=== PATIENT | female | born 1965 | race Caucasian/White ===

== ENCOUNTER → 2017-02-20 | Outpatient (CLI) | payer BC ==
--- NOTE | 2017-02-22 10:45 | MM ---
Reason for exam: screening (asymptomatic). Last mammogram was performed 1 year and 2 months ago. History: Patient is postmenopausal. Benign cyst aspiration of the right breast, 1984. Physical Findings: A clinical breast exam by your physician is recommended on an annual basis and results should be correlated with mammographic findings. MG Screening Mammo w CAD Bilateral CC and MLO view(s) were taken. Prior study comparison: December 16, 2015, bilateral MG screening mammo w CAD. October 06, 2014, bilateral MG screening mammo w CAD. The breast tissue is heterogeneously dense. This may lower the sensitivity of mammography. There is chronic nodularity in the left breast laterally. No significant changes when compared with prior studies. ASSESSMENT: Negative, BI-RAD 1 RECOMMENDATION: Routine screening mammogram of both breasts in 1 year.
== END | disposition home or self-care (01) ==
LOC: RADMAMWWP 08:53
PROVIDERS: ATTEND Family Medicine
DX: Z12.31 Encounter for screening mammogram for malignant neoplasm of breast (principal)

== ENCOUNTER 2018-04-23 13:28 | Inpatient (IN) | payer OTHER ==
[2018-04-23] MEDS ORDERED: ONDANSETRON 4 MG/2 ML VIAL IVP STA (15:17)
--- NOTE | 2018-04-23 15:22 | ED ---
General Adult HPI - General Chief complaint: Abdominal Pain Stated complaint: abd pain Source: patient Mode of arrival: ambulatory Limitations: no limitations - Related Data Home Medications Medication Instructions Recorded Confirmed Levothyroxine Sodium [Synthroid] 50 mcg PO DAILY 04/23/18 04/23/18 Allergies Allergy/AdvReac Type Severity Reaction Status Date / Time No Known Allergies Allergy Verified 04/23/18 15:53 Review of Systems ROS Statement: Those systems with pertinent positive or pertinent negative responses have been documented in the HPI. ROS Other: All systems not noted in ROS Statement are negative. Past Medical History Past Medical History: Thyroid Disorder History of Any Multi-Drug Resistant Organisms: None Reported Past Surgical History: Cholecystectomy, Tonsillectomy Additional Past Surgical History / Comment(s): tummy Past Psychological History: No Psychological Hx Reported Smoking Status: Current every day smoker Past Alcohol Use History: None Reported Past Drug Use History: None Reported General Exam Limitations: no limitations Course Vital Signs 04/23/18 04/23/18 04/23/18 13:50 16:18 17:46 Temperature 99.4 F 101.5 F H 100.8 F H Pulse Rate 109 H 93 Respiratory 18 18 Rate Blood Pressure 151/84 117/62 O2 Sat by Pulse 96 98 Oximetry Medical Decision Making - Medical Decision Making Dictation was produced using [employer] dictation software. please excuse any grammatical, word or spelling errors. Chief Complaint: 52-year-old female past medical history of thyroid disease presents with right lower quadrant abdominal pain 1 day. History of Present Illness: Patient states that her symptoms began last night. Her chief complaint is right lower quadrant abdominal pain. Patient states her symptoms began as diffuse abdominal cramping which has now referred to the right lower quadrant. Patient has history of cholecystectomy. Patient has nausea however has not vomited. Patient's stooling pattern has been at baseline. Patient denies any fever or constitutional symptoms. She denies any history of appendicitis. The ROS documented in this emergency department record has been reviewed and confirmed by me. Those systems with pertinent positive or negative responses have been documented in the HPI. All other systems are other negative and/or noncontributory. PHYSICAL EXAM: General Impression: Alert and oriented x3, not in acute distress HEENT: Normocephalic atraumatic, extra-ocular movements intact, pupils equal and reactive to light bilaterally, mucous membranes moist. Cardiovascular: Heart regular rate and rhythm, S1&S2 audible, no murmurs, rubs or gallops Chest: Lungs clear to auscultation bilaterally, no rhonchi, no wheeze, no rales Abdomen: Tenderness to palpation in the right lower quadrant. Positive rebound tenderness with palpation to the left referred to the right, tenderness in McBurney's point Musculoskeletal: Pulses present and equal in all extremities, no peripheral edema Motor: Power 5/5 bilaterally, no focal deficits noted Neurological: CN II-XII grossly intact, no focal motor or sensory deficits noted Skin: Intact with no visualized rashes Psych: Normal affect and mood ED course: 52-year-old female presents chief complaint of right lower quadrant pain 1 day. Vital signs upon arrival shows heart rate of 109, worse vital signs within acceptable limits. There is reasonable suspicion that patient's symptoms reflect acute appendicitis. Labs and CT imaging is obtained. Laboratory evaluation obtained. Leukocytosis of 15.5. Rest CBC unremarkable. Metabolic panel is unremarkable. Urinalysis is negative. Computed tomography scan of the abdomen and pelvis shows findings consistent with acute appendicitis. Discussed patient case with Dr. Canchola who is agreeable with ceftriaxone and Flagyl. She states to keep the patient nothing by mouth for possible operative intervention today or early tomorrow morning. Patient understandable agreeable to disposition. Patient did spike a temperature and was given antipyretics. - Lab Data Result diagrams: 04/23/18 15:21 04/23/18 15:21 Lab Results 04/23/18 04/23/18 04/23/18 Range/Units 15:21 15:21 17:00 WBC 15.5 H (3.8-10.6) k/uL RBC 4.81 (3.80-5.40) m/uL Hgb 14.2 (11.4-16.0) gm/dL Hct 44.0 (34.0-46.0) % MCV 91.3 (80.0-100.0) fL MCH 29.4 (25.0-35.0) pg MCHC 32.2 (31.0-37.0) g/dL RDW 12.3 (11.5-15.5) % Plt Count 286 (150-450) k/uL Neutrophils % 87 % Lymphocytes % 7 % Monocytes % 4 % Eosinophils % 0 % Basophils % 0 % Neutrophils # 13.5 H (1.3-7.7) k/uL Lymphocytes # 1.1 (1.0-4.8) k/uL Monocytes # 0.7 (0-1.0) k/uL Eosinophils # 0.1 (0-0.7) k/uL Basophils # 0.0 (0-0.2) k/uL Sodium 138 (137-145) mmol/L Potassium 4.2 (3.5-5.1) mmol/L Chloride 103 (98-107) mmol/L Carbon Dioxide 24 (22-30) mmol/L Anion Gap 11 mmol/L BUN 15 (7-17) mg/dL Creatinine 0.81 (0.52-1.04) mg/dL Est GFR (CKD-EPI)AfAm >90 (>60 ml/min/1.73 sqM) Est GFR (CKD-EPI)NonAf 86 (>60 ml/min/1.73 sqM) Glucose 123 H (74-99) mg/dL Calcium 9.6 (8.4-10.2) mg/dL Total Bilirubin 0.7 (0.2-1.3) mg/dL AST 38 H (14-36) U/L ALT 41 (9-52) U/L Alkaline Phosphatase 102 (38-126) U/L Total Protein 7.9 (6.3-8.2) g/dL Albumin 4.3 (3.5-5.0) g/dL Lipase 47 (23-300) U/L Urine Color Light Yellow Urine Appearance Clear (Clear) Urine pH 6.0 (5.0-8.0) Ur Specific [place] >1.050 H (1.001-1.035) Urine Protein Negative (Negative) Urine Glucose (UA) Negative (Negative) Urine Ketones Negative (Negative) Urine Blood Negative (Negative) Urine Nitrite Negative (Negative) Urine Bilirubin Negative (Negative) Urine Urobilinogen <2.0 (<2.0) mg/dL Ur Leukocyte Esterase Negative (Negative) Disposition Clinical Impression: Appendicitis Disposition: ADMITTED IP TO THIS [facility] Condition: Fair Referrals: Maria Luisa Callejas DO [Primary Care Provider] - 1-2 days Decision Time: 18:03
[2018-04-23 15:51] LABS: Basophils % (A) 0 %; Eosinophils # (A) 0.1 k/uL (0-0.7); Eosinophils % (A) 0 %; HGB 14.2 gm/dL (11.4-16.0); Lymphocytes # (A) 1.1 k/uL (1.0-4.8); Lymphocytes % (A) 7 %; MCH 29.4 pg (25.0-35.0); MCHC 32.2 g/dL (31.0-37.0); MCV 91.3 fL (80.0-100.0); Mean Platelet Volume 5.9; Monocytes # (A) 0.7 k/uL (0-1.0); Monocytes % (A) 4 %; Neutrophils # (A) 13.5 k/uL (1.3-7.7); Neutrophils % (A) 87 %; Platelet Count 286 k/uL (150-450); RBC 4.81 m/uL (3.80-5.40); RDW 12.3 % (11.5-15.5); WBC 15.5 k/uL (3.8-10.6)
[2018-04-23 16:04] LABS: ALT 41 U/L (9-52); AST 38 U/L (14-36); Albumin 4.3 g/dL (3.5-5.0); Alkaline Phosphatase 102 U/L (38-126); Anion Gap 11 mmol/L; Blood Urea Nitrogen 15 mg/dL (7-17); Calcium 9.6 mg/dL (8.4-10.2); Carbon Dioxide 24 mmol/L (22-30); Chloride 103 mmol/L (98-107); Glucose 123 mg/dL (74-99); Lipase 47 U/L (23-300); Potassium 4.2 mmol/L (3.5-5.1); Sodium 138 mmol/L (137-145); Total Bilirubin 0.7 mg/dL (0.2-1.3); Total Protein 7.9 g/dL (6.3-8.2)
[2018-04-23] MEDS ORDERED: metroNIDAZOLE-NS PMX 500 MG in SALINE 1 100ML.BAG IVPB STA (16:13)
--- NOTE | 2018-04-23 16:13 | CT ---
EXAMINATION TYPE: CT abdomen pelvis w con DATE OF EXAM: 04/23/2018 HISTORY: RLQ pain for [address] DLP: 1118.7mGycm Automated Exposure Control for Dose Reduction was Utilized. CONTRAST: CT scan of the abdomen and pelvis is performed without oral but with IV Contrast, patient injected wi th 100 mL of Isovue 300. COMPARISON: None FINDINGS: LUNG BASES: Dependent atelectasis bilateral lung bases is present. LIVER/GB: Cholecystectomy clips are noted. PANCREAS: No significant abnormality is seen. SPLEEN: No significant abnormality is seen. ADRENALS: No significant abnormality is seen. KIDNEYS: No significant abnormality is seen. BOWEL: There is elongated 18 mm appendicolith at base of appendix. Appendix is moderately thickened t o 16 mm at base with additional appendicoliths in mid aspect and tip identified. There is persistent dilatation at appendiceal tip up to 11 mm. There is mild to moderate ill-defined fluid and fat strand ing along mesenteric aspect of the dilated appendix. No free air is seen. No well-formed fluid collec tion is noted. UTERUS/ADNEXA: Anteverted uterus is seen. LYMPH NODES: No greater than 1cm abdominal or pelvic lymph nodes are appreciated. OSSEOUS STRUCTURES: There is vacuum disc phenomenon with moderate disc space narrowing L5-S1 level. 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 Clinical correlation adv ised. Small fat-containing ventral wall hernia sagittal image 75 near umbilicus is noted. IMPRESSION: CT findings consistent with acute appendicitis as detailed above. Critical results communicated to ordering ER physician via telephone at time of dictation.
[2018-04-23] MEDS ORDERED: ACETAMINOPHEN TAB 500 MG TAB PO STA (16:28)
[2018-04-23 17:34] LABS: Appearance,Urine Clear (Clear); Bilirubin,Urine Negative (Negative); Blood,Urine Negative (Negative); Color,Urine Light Yellow; Glucose,Urine (UA) Negative (Negative); Ketones,Urine Negative (Negative); Leukocyte Esterase,Urine Negative (Negative); Nitrite,Urine Negative (Negative); Protein,Urine Negative (Negative); Urobilinogen,Urine <2.0 mg/dL (<2.0)
[2018-04-23] MEDS ORDERED: MORPHINE SULFATE 2 MG/ML SYRINGE IVP ONE (17:40)
[2018-04-23 17:56] LABS: Specific Gravity,Urine >1.050 (1.001-1.035)
[2018-04-23] MEDS ORDERED: NALOXONE 0.4 MG/ML 1 ML VIAL IV PRN (17:59)
[2018-04-23] MEDS: SODIUM CHLORIDE 0.9% 1,000 ML IV SCH (18:18)
[2018-04-23] MEDS: ONDANSETRON 4 MG/2 ML VIAL IVP PRN (19:10)
[2018-04-23] MEDS ORDERED: IBUPROFEN 600 MG TAB PO STA (20:08)
[2018-04-23] MEDS: MORPHINE SULFATE 4 MG/ML SYRINGE IV PRN (21:20)
[2018-04-24] MEDS: MORPHINE SULFATE 4 MG/ML SYRINGE IV PRN ×3 (01:05→13:02)
[2018-04-24] MEDS: SODIUM CHLORIDE 0.9% 1,000 ML IV SCH ×3 (04:46→20:51)
[2018-04-24] MEDS: PIPERACILLIN-TAZOBACTAM 3.375 GM in SODIUM CHLORIDE 0.9% 100 ML IVPB SCH ×3 (06:14→23:03)
[2018-04-24] MEDS: ONDANSETRON 4 MG/2 ML VIAL IVP PRN (08:30)
[2018-04-24 08:52] LABS: Basophils % (A) 0 %; Eosinophils # (A) 0.1 k/uL (0-0.7); Eosinophils % (A) 1 %; HGB 13.2 gm/dL (11.4-16.0); Lymphocytes # (A) 1.6 k/uL (1.0-4.8); Lymphocytes % (A) 10 %; MCH 30.5 pg (25.0-35.0); MCHC 32.9 g/dL (31.0-37.0); MCV 92.6 fL (80.0-100.0); Mean Platelet Volume 6.3; Monocytes % (A) 6 %; Neutrophils # (A) 13.6 k/uL (1.3-7.7); Neutrophils % (A) 83 %; Platelet Count 248 k/uL (150-450); RBC 4.32 m/uL (3.80-5.40); RDW 12.4 % (11.5-15.5); WBC 16.5 k/uL (3.8-10.6)
--- NOTE | 2018-04-24 09:18 | P.GSHP ---
History of Present Illness H&P Date: 04/24/18 CHIEF COMPLAINT: Right lower quadrant abdominal pain with appendicitis for 2+ days. HISTORY OF PRESENT ILLNESS: The patient is a previously healthy 52-year-old female who presents with 2 day history of periumbilical with right lower quadrant abdominal pain. No reports of prior abdominal pain. She states the intensity of the pain is moderate to severe. She presented with CT abdomen and pelvis consistent with dilated appendix suspicious for appendicitis hence general surgery admission. PAST MEDICAL HISTORY: See list. PAST SURGICAL HISTORY: See list. CURRENT MEDICATIONS: See list. ALLERGIES: See list. SOCIAL HISTORY: Non-tobacco user. FAMILY HISTORY: Denies Crohns disease and ulcerative colitis. REVIEW OF ORGAN SYSTEMS: CONSTITUTIONAL: Denies any fever or chills. Denies recent weight loss. HEENT: Denies any trouble with vision, hearing or nosebleeds. No difficulty swallowing. LYMPHATIC: The patient denies any lumps and bumps around the neck. ENDOCRINE: Has thyroid disorders. Denies any blood sugar glucose intolerance. RESPIRATORY: Denies shortness of breath including chronic cough. CARDIOVASCULAR: Denies history of chest pain with exertion. GASTROINTESTINAL: Denies regurgitation of bile at night as well as intermittent nausea. No blood in stools. GENITOURINARY: Denies any blood in urine or increased urinary frequency. MUSCULOSKELETAL: Denies current joint arthritis. NEUROLOGIC: Denies any numbness or tingling along the distal extremities. No seizure disorders or headaches. PSYCHIATRIC: Denies any depression or suicidal ideation. HEMATOLOGIC: Denies any abnormal bleeding or bruising. PHYSICAL EXAMINATION: GENERAL: Well developed and in no acute distress. Pleasant. HEENT: No sclera icterus. Extraocular movements grossly intact. Moist buccal mucosa. Head is atraumatic, normocephalic. Hears conversational speech. No nasal drainage. NECK: Supple without lymphadenopathy. No JV distention. CHEST: Non-labored respirations and equal bilateral excursions. CARDIOVASCULAR: Regular rate and rhythm. Palpable 2+ radial pulses. ABDOMEN: Soft, tender at the right lower quadrant without guarding. MUSCULOSKELETAL: No clubbing, cyanosis or edema. NEUROLOGIC: No focal or lateralizing signs. PSYCH: Appropriate affect. Alert and oriented to person, place and time. SKIN: Well perfused. Good skin turgor. LABS: Reviewed STUDIES: CT of the abdomen and pelvis reviewed with findings consistent with appendicitis. ASSESSMENT: 1. Right lower quadrant pain. 2. Appendicitis. 3. Leukocytosis. PLAN: 1. I have discussed benefits and risks of laparoscopic appendectomy. 2. Bilateral SCDs. 3. Antibiotics. 4. DVT prophylaxis with heparin. 5. GI prophylaxis. Thank you very much for allowing me to participate in the care of your patient. Past Medical History Past Medical History: Thyroid Disorder Additional Past Medical History / Comment(s): uti- ecoli , bronchitis, ibs, History of Any Multi-Drug Resistant Organisms: None Reported Past Surgical History: Ablation, Cholecystectomy, Tonsillectomy Additional Past Surgical History / Comment(s): tummy tuck, uterine ablation 2007 Past Anesthesia/Blood Transfusion Reactions: No Reported Reaction Additional Past Anesthesia/Blood Transfusion Reaction / Comment(s): never had any blood transfusions Smoking Status: Current every day smoker - Past Family History Mother Family Medical History: Hypertension Additional Family Medical History / Comment(s): rheumatic fever- valve replacement Father Family Medical History: Cancer, Prostate Disorder Additional Family Medical History / Comment(s): prostate cancer Sister(s) Additional Family Medical History / Comment(s): sister #1 ra,thyroid, sister#1 anxiety, hypertension Brother(s) Family Medical History: No Reported History Medications and Allergies Home Medications Medication Instructions Recorded Confirmed Type Levothyroxine Sodium [Synthroid] 50 mcg PO DAILY 04/23/18 04/23/18 History Allergies Allergy/AdvReac Type Severity Reaction Status Date / Time No Known Allergies Allergy Verified 04/23/18 15:53 Surgical - Exam Vital Signs Temp Pulse Resp BP Pulse Ox 99.4 F 109 H 18 151/84 96 04/23/18 13:50 04/23/18 13:50 04/23/18 13:50 04/23/18 13:50 04/23/18 13:50 Results - Labs 04/24/18 08:25 04/23/18 15:21 Abnormal Lab Results - Last 24 Hours (Table) 04/23/18 04/23/18 04/23/18 Range/Units 15:21 15:21 17:00 WBC 15.5 H (3.8-10.6) k/uL Neutrophils # 13.5 H (1.3-7.7) k/uL Glucose 123 H (74-99) mg/dL AST 38 H (14-36) U/L Ur Specific [place] >1.050 H (1.001-1.035) 04/24/18 Range/Units 08:25 WBC 16.5 H (3.8-10.6) k/uL Neutrophils # 13.6 H (1.3-7.7) k/uL Glucose (74-99) mg/dL AST (14-36) U/L Ur Specific [place] (1.001-1.035) Diabetes panel 04/23/18 Range/Units 15:21 Sodium 138 (137-145) mmol/L Potassium 4.2 (3.5-5.1) mmol/L Chloride 103 (98-107) mmol/L Carbon Dioxide 24 (22-30) mmol/L BUN 15 (7-17) mg/dL Creatinine 0.81 (0.52-1.04) mg/dL Glucose 123 H (74-99) mg/dL Calcium 9.6 (8.4-10.2) mg/dL AST 38 H (14-36) U/L ALT 41 (9-52) U/L Alkaline Phosphatase 102 (38-126) U/L Total Protein 7.9 (6.3-8.2) g/dL Albumin 4.3 (3.5-5.0) g/dL Calcium panel 04/23/18 Range/Units 15:21 Calcium 9.6 (8.4-10.2) mg/dL Albumin 4.3 (3.5-5.0) g/dL Pituitary panel 04/23/18 Range/Units 15:21 Sodium 138 (137-145) mmol/L Potassium 4.2 (3.5-5.1) mmol/L Chloride 103 (98-107) mmol/L Carbon Dioxide 24 (22-30) mmol/L BUN 15 (7-17) mg/dL Creatinine 0.81 (0.52-1.04) mg/dL Glucose 123 H (74-99) mg/dL Calcium 9.6 (8.4-10.2) mg/dL Adrenal panel 04/23/18 Range/Units 15:21 Sodium 138 (137-145) mmol/L Potassium 4.2 (3.5-5.1) mmol/L Chloride 103 (98-107) mmol/L Carbon Dioxide 24 (22-30) mmol/L BUN 15 (7-17) mg/dL Creatinine 0.81 (0.52-1.04) mg/dL Glucose 123 H (74-99) mg/dL Calcium 9.6 (8.4-10.2) mg/dL Total Bilirubin 0.7 (0.2-1.3) mg/dL AST 38 H (14-36) U/L ALT 41 (9-52) U/L Alkaline Phosphatase 102 (38-126) U/L Total Protein 7.9 (6.3-8.2) g/dL Albumin 4.3 (3.5-5.0) g/dL - Imaging CT scan - abdomen: report reviewed, image reviewed CT scan - pelvis: report reviewed, image reviewed Assessment and Plan (1) Acute appendicitis Current Visit: Yes Status: Acute Code(s): K35.80 - UNSPECIFIED ACUTE APPENDICITIS SNOMED Code(s): 40262395
[2018-04-24] MEDS ORDERED: ceFAZolin IN SWFI 2 GM/20 ML SYRINGE IVP ONE (13:00)
[2018-04-24] MEDS: SODIUM CHLORIDE 0.9% 2,000 ML IV ONE ×2 (13:03→13:39)
[2018-04-24] MEDS: ENOXAPARIN 40 MG/0.4 ML SYRINGE SQ SCH (14:02)
[2018-04-24] MEDS: HYDROmorphone 1 MG/ML 1 ML SYRINGE IVP PRN (15:44)
[2018-04-24] MEDS: METOCLOPRAMIDE 5 MG/ML 2 ML VIAL IVP SCH ×3 (15:45→23:59)
[2018-04-24] MEDS ORDERED: MIDAZOLAM (PF) 2 MG/2 ML VIAL IV PRN (15:52)
[2018-04-24] MEDS ORDERED: fentaNYL (PF) 50 MCG/ML 2 ML AMP IV PRN (15:52)
[2018-04-24] MEDS ORDERED: LIDOCAINE 1% 20 ML VIAL (10MG/ML) FOR IV START INTRADERMA PRN (15:52)
[2018-04-24] MEDS ORDERED: DEXAMETHASONE SOD PHOSPHATE 10 MG/ML 1 ML VIAL IV ONE (15:52)
[2018-04-24] MEDS ORDERED: IV FLUID CONTINUATION 1,000 ML IV ONE ×2 (16:38)
[2018-04-24] MEDS ORDERED: HYDROmorphone (PF) 1 MG/ML ONE (17:01)
[2018-04-24] MEDS ORDERED: fentaNYL (PF) 50 MCG/ML 2 ML AMP ONE (17:01)
[2018-04-24] MEDS ORDERED: NEOSTIGMINE 1 MG/ML 10 ML VIAL ONE (17:01)
[2018-04-24] MEDS ORDERED: ROCURONIUM BROMIDE 10 MG/ML 10 ML VIAL IV ONE (17:01)
[2018-04-24] MEDS ORDERED: MIDAZOLAM 2 MG/2 ML VIAL ONE (17:01)
[2018-04-24] MEDS ORDERED: ONDANSETRON 4 MG/2 ML VIAL ONE (17:01)
[2018-04-24] MEDS ORDERED: SUCCINYLCHOLINE CHLORIDE 100 MG/5 ML SYR IV ONE (17:01)
[2018-04-24] MEDS ORDERED: LIDOCAINE 1% INJ 10MG/ML (20 ML MDV) ONE (17:01)
[2018-04-24] MEDS ORDERED: GLYCOPYRROLATE 0.2 MG/ML 2 ML VIAL ONE (17:01)
[2018-04-24] MEDS ORDERED: PROPOFOL 10 MG/ML 20 ML VIAL IV ONE (17:01)
[2018-04-24] MEDS ORDERED: BUPIVACAIN-EPI 0.25%-1:200,000 30 ML VIAL SQ ONE (17:54)
[2018-04-24] MEDS ORDERED: LACTATED RINGERS 1,000 ML IV ONE (18:10)
[2018-04-24] MEDS ORDERED: ACETAMINOPHEN IV (For NPO) 1,000 MG in EMPTY BAG 1 BAG IVPB ONE (19:08)
--- NOTE | 2018-04-24 19:08 | P.ONQ ---
Anesthesiology Proc Note - PNB - Peripheral Nerve Block Performed Bilateral Transversus Abdominis Time Out Performed: Yes Procedure Start Time: 18:55 Procedure Stop Time: 19:00 Indication: Acute Post-Operative Pain, Analgesia, Requested by physician Preparation: Sterile Prep Position: Supine Catheter: None Needle Types: On-Q Needle Size: 100mm (4") Needle Gauge: 21 Technique: Ultrasound Injectate: Other (see comment) (0.375% ropivacaine 20cc each side) Blood Aspirated: No Pain Paresthesia on Injection Noted: No Resistance on Injection: Normal Events: Uneventful and Well Tolerated
--- NOTE | 2018-04-24 19:21 | P.OP ---
Date of Procedure: 04/24/18 Description of Procedure: Date of Procedure: 04/24/18 SURGEON: DAKSHA CANCHOLA MD Preoperative Diagnosis: 1. Right lower quadrant abdominal pain 2. Acute appendicitis. 3. Abnormal computed tomography scan for appendicitis 4. Hypothyroidism 5. Sepsis 6. Obesity due to excess calories, BMI 36.0 Postoperative Diagnosis: 1. Right lower quadrant abdominal pain 2. Acute appendicitis, gangrenous necrotizing appendicitis 3. Abnormal computed tomography scan for appendicitis 4. Hypothyroidism 5. Sepsis 6. Peritonitis 7. Obesity due to excess calories, BMI 36.0 Procedure(s) Performed: 1. Robotic-assisted daVinci Xi laparoscopic lysis of adhesions over 30 minutes 2. Robotic-assisted daVinci Xi laparoscopic appendectomy 3. Placement of GERTRUDE drain #19 right lower quadrant 4. Peritoneal lavage 500 mL normal saline Anesthesia: GETA, local Surgeon: Daksha Canchola Estimated Blood Loss (ml): 10 Pathology: other (appendix, aerobic and anerobic culture of peritoneal fluid from peritonitis) Condition: stable Disposition: floor Operative Findings: 1. Peritonitis on clinical exam and diffuse fibrinous exudate involving lower pelvis, sigmoid colon, small bowel 2. Gangrenous purulent appendicitis with near rupture 3. Abdomen irrigated with 500-mL normal saline 4. GERTRUDE drain placed at localized phlegmon of right lower quadrant 5. Appendix with fecalith resected at base 6. Staple line hemostatic INDICATIONS: The patient is a 52-year-old female who presents with acute appendicitis including fevers and peritonitis consistent with sepsis. Surgical intervention was described in detail. Benefits and risks, including infection, open surgery, and possibility for additional surgery was discussed at length. Informed consent was obtained. All questions of the patient and family were answered. DESCRIPTION: The patient was transferred to the operating room and placed in supine position. The patient had previously voided. The abdomen was then prepped and draped in standard sterile fashion as Ioban was placed along the abdomen to minimize any contamination of skin floor. After a timeout protocol was performed, attention was then brought to the left upper quadrant whereby a 0 degree 5 mm laparoscopic trocar entry was performed. The abdominal cavity was entered and insufflated to 15 mmHg pressure, which was tolerated well. Diagnostic laparoscopy demonstrated no injury to bowel, viscera or mesentery. Moderate fibrinous exudate was found throughout the small bowel. No localized purulence was found however. Next a robotic 12-mm trocar was placed along the right upper quadrant, 15-cm superior from the pelvis. A 8 mm port was placed along the left lower quadrant and another 8-mm port along the epigastrium. Ports were placed 10 cm apart from each other including 15-20 cm away from the target anatomy of the right pelvis. The patient was then placed in Trendelenburg position, at least 14 and right side up at least 6. The robotic da Bereket XI system was primed and docked from the left side of the patient. Using atraumatic graspers and vessel sealer, the robotic system was docked and primed as described. Instruments were interchanged by the emergency veterinary assistant including graspers, robotic stapler and vessel sealer. Next, attention was brought to identify the cecum. A systematic view within the abdominal cavity was started with the small bowel which was remarkable for diffuse fibrinous exudate throughout the pelvis. The base of the cecum was without inflammation. The appendix was gangrenous however without rupture with moderate dissection performed to identify the base of the appendix. A 45 mm blue robotic staple loads were fired along the base of the appendix. The staple line was hemostatic. Hemostasis was checked prior to undocking the robot. The robot was undocked. I re-scrubbed into the case. A round #19 drain was placed via the left lower quadrant port and positioned at the right lower quadrant and pelvis after irrigating the abdomen with 500-mL of normal saline until the aspirant was clear. A drain stitch 2-0 nylon was placed with the bulb attached separately. The specimen was removed from the abdominal cavity with an Endo Catch bag through the 12 mm trocar at the right upper quadrant. All instruments and pneumoperitoneum were evacuated from the abdominal cavity. Local anesthetic was infiltrated to all wounds for postop analgesia. All incisions were also cleansed with diluted hydrogen peroxide. An Optifoam surgical dressing was placed over the right upper quadrant incision and drain site. Exofin glue was applied to the rest of the skin incisions. The patient had tolerated the procedure well. The patient was extubated successfully. The patient was transferred to the postanesthesia care unit in stable condition.
[2018-04-24] MEDS ORDERED: SODIUM CHLORIDE 0.9% 1,000 ML IV ONE (19:40)
[2018-04-24] MEDS: LACTATED RINGERS 1,000 ML IV SCH (20:47)
[2018-04-24] MEDS: SODIUM CHLORIDE 0.9% 500 ML 500 ML IV SCH ×4 (20:54→21:40)
[2018-04-24] MEDS: D5-0.45% NACL WITH KCL 20MEQ/L 1,000 ML IV SCH (23:01)
[2018-04-25] MEDS: metroNIDAZOLE-NS PMX 500 MG in SALINE 1 100ML.BAG IVPB SCH ×5 (00:06→23:38)
[2018-04-25] MEDS: HYDROmorphone 1 MG/ML 1 ML SYRINGE IVP PRN ×8 (01:29→23:38)
[2018-04-25] MEDS: SODIUM CHLORIDE 0.9% 1,000 ML IV SCH ×3 (03:07→19:48)
[2018-04-25 03:21] LABS: Amorphous Sediment,Urine Rare /hpf; Appearance,Urine Cloudy (Clear); Bacteria,Urine Occasional /hpf; Bilirubin,Urine Negative (Negative); Blood,Urine Small (Negative); Color,Urine Yellow; Glucose,Urine (UA) Negative (Negative); Ketones,Urine 2+ (Negative); Leukocyte Esterase,Urine Negative (Negative); Mucus,Urine Rare /hpf; Nitrite,Urine Negative (Negative); Protein,Urine 1+ (Negative); RBC,Urine 9 /hpf (0-5); Specific Gravity,Urine 1.019 (1.001-1.035); Squamous Epithelial Cell,Urine 1 /hpf (0-4); Uric Acid Crystals,Urine Occasional /hpf; Urobilinogen,Urine <2.0 mg/dL (<2.0)
[2018-04-25] MEDS: D5-0.45% NACL WITH KCL 20MEQ/L 1,000 ML IV SCH ×3 (04:39→20:37)
[2018-04-25] MEDS: PIPERACILLIN-TAZOBACTAM 3.375 GM in SODIUM CHLORIDE 0.9% 100 ML IVPB SCH ×3 (06:07→20:37)
[2018-04-25] MEDS: METOCLOPRAMIDE 5 MG/ML 2 ML VIAL IVP SCH ×4 (06:15→23:38)
[2018-04-25 08:31] LABS: Basophils % (A) 0 %; Eosinophils % (A) 0 %; HCT 35.4 % (34.0-46.0); HGB 11.6 gm/dL (11.4-16.0); Lymphocytes # (A) 1.3 k/uL (1.0-4.8); Lymphocytes % (A) 12 %; MCH 30.7 pg (25.0-35.0); MCHC 32.6 g/dL (31.0-37.0); Mean Platelet Volume 6.5; Monocytes # (A) 0.4 k/uL (0-1.0); Monocytes % (A) 3 %; Neutrophils # (A) 9.2 k/uL (1.3-7.7); Neutrophils % (A) 84 %; Platelet Count 208 k/uL (150-450); RBC 3.77 m/uL (3.80-5.40); RDW 12.5 % (11.5-15.5)
[2018-04-25] MEDS: PANTOPRAZOLE 40 MG/10 ML VIAL IV SCH (10:36)
[2018-04-25] MEDS: ENOXAPARIN 40 MG/0.4 ML SYRINGE SQ SCH (10:37)
--- NOTE | 2018-04-25 12:13 | P.PN ---
Subjective Progress Note Date: 04/25/18 52-year-old female who underwent appendectomy secondary to gangrenous necrotizing appendicitis. She is postop day 1. She is evaluated at the bedside. She complains of pain. She is receiving IV Dilaudid. GERTRUDE drain is intact with serosanguineous drainage. Nursing reports 50 mL of drainage. White count is 11.0 today down from 16.5. Patient was febrile overnight with 101.8. She is afebrile this morning at 98.6. Jacome catheter has been discontinued and patient is due to void. Patient is requesting Mucinex. Patient reports she is passing gas. She is on a clear liquid diet and tolerating well. Patient reports decreased intake as she is afraid to get sick. She currently denies nausea or vomiting. PHYSICAL EXAM: GENERAL: This is a 52-year-old female in no apparent distress at the time of examination. HEENT: Head is atraumatic, normocephalic. Pupils are equal, round, and reactive to light. Sclerae anicteric. Conjunctivae are clear. RESPIRATORY: Nonlabored respirations and equal bilateral excursions. CARDIOVASCULAR: Regular rate and rhythm. GASTROINTESTINAL: Abdomen soft and round. Surgical dressing clean dry and intact. GERTRUDE drain with serosanguineous output. 50 mL recently emptied. Hypoactive bowel sounds auscultated 4 quadrants. INTEGUMENTARY: No cyanosis. No jaundice. No rashes noted. No cellulitis noted. EXTREMITIES: 2+ peripheral pulses. No evidence of peripheral edema. NEUROLOGIC: No focal or lateralizing signs. PSYCHIATRIC: Awake, alert, and oriented X 3. Appropriate affect. Intact judgement and insight. ASSESSMENT: Gangrenous necrotizing appendicitis, status post appendectomy POD #1 Sepsis, secondary to above Peritonitis Obesity BMI 36.0 Nicotine dependence PLAN: Continue clear liquid diet Pain control. Continue IV Dilaudid at this time due to increased pain Jacome catheter removed. Patient is due to void. Will add mucinex per patient request Incentive spirometry Activity as tolerated Nurse practitioner note has been reviewed by physician. Signing provider agrees with the documented findings, assessment, and plan of care. Objective - Vital Signs Vital signs: Vital Signs Temp 98.6 F 04/25/18 07:10 Pulse 104 H 04/25/18 07:10 Resp 17 04/25/18 07:10 BP 118/74 04/25/18 07:10 Pulse Ox 95 04/25/18 07:10 Intake & Output 04/24/18 04/25/18 04/25/18 18:59 06:59 18:59 Intake Total 1100 2200 Output Total 210 550 Balance 890 1650 Intake: IV 1100 200 Intake, IV Titration 2000 Amount D5-0.45% NaCl with KCl 1000 20Meq/l 1,000 ml @ 120 mls/hr IV .Q8H20M [facility] Rx# :[id number] Sodium Chloride 0.9% 2, 1000 000 ml @ 999 mls/hr IV . Q2H1M [facility] Rx#:[id number] Output: Urine 200 550 Estimated Blood Loss 10 Other: Voiding Method Indwelling Catheter Indwelling Catheter # Voids 1 - Labs CBC & Chem 7: 04/25/18 07:20 04/23/18 15:21 Labs: Abnormal Lab Results - Last 24 Hours (Table) 04/25/18 04/25/18 Range/Units 02:45 07:20 WBC 11.0 H (3.8-10.6) k/uL RBC 3.77 L (3.80-5.40) m/uL Neutrophils # 9.2 H (1.3-7.7) k/uL Urine Appearance Cloudy H (Clear) Urine Protein 1+ H (Negative) Urine Ketones 2+ H (Negative) Urine Blood Small H (Negative) Urine RBC 9 H (0-5) /hpf Urine WBC 8 H (0-5) /hpf Uric Acid Crystals Occasional H (None) /hpf Amorphous Sediment Rare H (None) /hpf Urine Bacteria Occasional H (None) /hpf Urine Mucus Rare H (None) /hpf Microbiology - Last 24 Hours (Table) 04/25/18 02:45 Urine Culture - Preliminary Urine,Voided 04/24/18 18:50 Gram Stain - Preliminary Appendix Wound Culture - Preliminary 04/24/18 18:50 Anaerobic Culture - Preliminary Appendix Assessment and Plan (1) Obesity (BMI 30-39.9) Current Visit: Yes Status: Acute Code(s): E66.9 - OBESITY, UNSPECIFIED SNOMED Code(s): 168443630 (2) Nicotine dependence Current Visit: Yes Status: Acute Code(s): F17.200 - NICOTINE DEPENDENCE, UNSPECIFIED, UNCOMPLICATED SNOMED Code(s): 09490557 (3) Acute appendicitis Current Visit: Yes Status: Acute Code(s): K35.80 - UNSPECIFIED ACUTE APPENDICITIS SNOMED Code(s): 90462963 (4) Appendicitis Current Visit: Yes Status: Acute Code(s): K37 - UNSPECIFIED APPENDICITIS SNOMED Code(s): 29062573 (5) Peritonitis Current Visit: Yes Status: Acute Code(s): K65.9 - PERITONITIS, UNSPECIFIED SNOMED Code(s): 18852582
[2018-04-25] MEDS: guaiFENesin 600 MG TABLET.ER PO PRN (13:38)
[2018-04-25] MEDS: LACTATED RINGERS 1,000 ML IV SCH (17:20)
[2018-04-25] MEDS: ACETAMINOPHEN TAB 325 MG TAB PO PRN (19:38)
[2018-04-26] MEDS: SODIUM CHLORIDE 0.9% 1,000 ML IV SCH ×3 (01:16→23:16)
[2018-04-26] MEDS: guaiFENesin 600 MG TABLET.ER PO PRN ×2 (01:44→12:43)
[2018-04-26] MEDS: ONDANSETRON 4 MG/2 ML VIAL IVP PRN ×4 (03:11→21:36)
[2018-04-26] MEDS: HYDROmorphone 1 MG/ML 1 ML SYRINGE IVP PRN (03:20)
[2018-04-26] MEDS: METOCLOPRAMIDE 5 MG/ML 2 ML VIAL IVP SCH ×4 (05:30→23:36)
[2018-04-26] MEDS: D5-0.45% NACL WITH KCL 20MEQ/L 1,000 ML IV SCH ×4 (05:30→23:36)
[2018-04-26] MEDS: metroNIDAZOLE-NS PMX 500 MG in SALINE 1 100ML.BAG IVPB SCH ×2 (05:31→15:13)
[2018-04-26] MEDS: PIPERACILLIN-TAZOBACTAM 3.375 GM in SODIUM CHLORIDE 0.9% 100 ML IVPB SCH ×3 (05:31→21:36)
[2018-04-26] MEDS: LEVOTHYROXINE 50 MCG TAB PO SCH (05:40)
[2018-04-26 08:50] LABS: Basophils % (A) 0 %; Eosinophils # (A) 0.1 k/uL (0-0.7); Eosinophils % (A) 1 %; Lymphocytes # (A) 0.8 k/uL (1.0-4.8); Lymphocytes % (A) 6 %; MCH 29.3 pg (25.0-35.0); MCHC 31.6 g/dL (31.0-37.0); MCV 92.7 fL (80.0-100.0); Mean Platelet Volume 6.2; Monocytes # (A) 0.4 k/uL (0-1.0); Monocytes % (A) 3 %; Neutrophils # (A) 12.6 k/uL (1.3-7.7); Neutrophils % (A) 91 %; Platelet Count 234 k/uL (150-450); RBC 3.77 m/uL (3.80-5.40); RDW 12.5 % (11.5-15.5)
[2018-04-26] MEDS ORDERED: DEXAMETHASONE SOD PHOSPHATE 10 MG/ML 1 ML VIAL IV STA (08:55)
[2018-04-26] MEDS: KETOROLAC 30 MG/ML 1 ML VIAL IVP SCH ×3 (09:16→21:36)
[2018-04-26] MEDS: PANTOPRAZOLE 40 MG/10 ML VIAL IV SCH (09:22)
[2018-04-26] MEDS: ENOXAPARIN 40 MG/0.4 ML SYRINGE SQ SCH (09:24)
[2018-04-26] MEDS: ACETAMINOPHEN TAB 325 MG TAB PO PRN (12:36)
[2018-04-26] MEDS ORDERED: TRIMETHOBENZAMIDE 300 MG CAP PO PRN (15:34)
--- NOTE | 2018-04-26 16:35 | P.CONS ---
History of Present Illness - Reason for Consult Consult date: 04/26/18 - Chief Complaint Abdominal pain - History of Present Illness Pleasant 52-year-old female presents to Hospital with a approximate 2 day history of some abdominal discomforts that started. Umbilical and then developed into the right lower quadrant. The patient relates she had the rapid increase of discomfort and her brought her to the emergency center because of her rapid change of status. She will be she had a fever but no chills or rigors. She felt very poorly had nausea without much emesis and did not have significant hematemesis melena or hematochezia. Upon evaluation in the emergency center there is evidence of acute appendicitis by the computed tomography scan and consequently was admitted and surgical consult occurred. Given her symptoms she was taken to the operating room where a nearly ruptured appendix was found with evidence of purulence in the right lower quadrant. Appendectomy and lavage occurred, the patient continues to feel poorly with ongoing nausea and near emesis. Fortunately her fever is improved and leukocytosis also improving. However she still feels quite poorly and a consult was requested. She relates this is the worst she has felt in her whole life including when she had section. Review of Systems HEENT:Denies headache or acute visual change. Denies sinus or mouth discomforts. Denies neck stiffness or pain. Denies significant oral cavity pain. Denies difficulty on swallowing. Lungs: Denies significant shortness of breath, cough, sputum production, or hemoptysis. Cardiovascular: Denies significant shortness of breath, chest pain, chest wall pain, orthopnea, dyspnea on exertion, syncope Gastrointestinal: As per the HPI has ongoing nausea and no emesis at the moment ongoing abdominal pain which is improving since the surgery. Musculoskeletal: denies significant myalgias or arthralgias. No new joint swelling. Denies new back pain. Skin: Denies new rash or lesions. No new ulcers or wounds are related.. Neuro: Denies headache or visual change. Denies any new onset weakness or difficulty with ambulation. Denies falls or seizures. Psychiatric:Denies anxiety or depression. Endocrine: Denies significant fatigue, denies significant weight loss or weight gain. Past Medical History Past Medical History: Thyroid Disorder Additional Past Medical History / Comment(s): uti- ecoli , bronchitis, ibs, History of Any Multi-Drug Resistant Organisms: None Reported Past Surgical History: Ablation, Cholecystectomy, Tonsillectomy Additional Past Surgical History / Comment(s): tummy tuck, uterine ablation 2008 Past Anesthesia/Blood Transfusion Reactions: No Reported Reaction Additional Past Anesthesia/Blood Transfusion Reaction / Comm: never had any blood transfusions Additional Psychological History / Comment(s): . Works for local [employer]. No tobacco use, no alcohol use or drug use. No experience. Travel history. Pet dog outside of the home Smoking Status: Current every day smoker - Past Family History Mother Family Medical History: Hypertension Additional Family Medical History / Comment(s): rheumatic fever- valve replacement Father Family Medical History: Cancer, Prostate Disorder Additional Family Medical History / Comment(s): prostate cancer Sister(s) Additional Family Medical History / Comment(s): sister #1 ra,thyroid, sister#1 anxiety, hypertension Brother(s) Family Medical History: No Reported History Medications and Allergies Home Medications and Allergies Comment(s): Current Medications Acetaminophen (Tylenol Tab) 650 mg PO Q6HR PRN PRN Reason: Mild Pain or Fever > 100.5 Last Admin: 04/26/18 12:36 Dose: 650 mg Enoxaparin Sodium (Lovenox) 40 mg SQ DAILY [facility] Last Admin: 04/26/18 09:24 Dose: 40 mg Guaifenesin (Mucinex) 600 mg PO Q12HR PRN PRN Reason: Congestion Last Admin: 04/26/18 12:43 Dose: 600 mg Hydromorphone HCl (Dilaudid) 1 mg IVP Q2HR PRN PRN Reason: Severe Pain Last Admin: 04/26/18 03:20 Dose: 1 mg Sodium Chloride (Saline 0.9%) 1,000 mls @ 120 mls/hr IV .Q8H20M [facility] Last Admin: 04/26/18 05:41 Dose: Not Given Piperacillin Sod/Tazobactam (Sod 3.375 gm/ Sodium Chloride) 100 mls @ 25 mls/ hr IVPB Q8H [facility] Last Admin: 04/26/18 12:36 Dose: 25 mls/hr Lactated Ringer's (Lactated Ringers) 1,000 mls @ 20 mls/hr IV .Q24H [facility] Last Admin: 04/25/18 17:20 Dose: Not Given Potassium Chloride/Dextrose/Sod Cl (D5%-1/2ns-Kcl 20 Meq/L Iv Solution) 1,000 mls @ 120 mls/hr IV .Q8H20M [facility] Last Admin: 04/26/18 15:10 Dose: 120 mls/hr Ketorolac Tromethamine (Toradol) 30 mg IVP Q6H [facility] Stop: 04/30/18 09:01 Last Admin: 04/26/18 15:14 Dose: Not Given Levothyroxine Sodium (Synthroid) 50 mcg PO DAILY@0630 [facility] Last Admin: 04/26/18 05:40 Dose: 50 mcg Lidocaine HCl (.Xylocaine 1% Inj (10mg/Ml) For Iv Start) 0.1 ml INTRADERMA PER PROTOCOL PRN PRN Reason: IV Start Metoclopramide HCl (Reglan) 10 mg IVP Q6HR [facility] Last Admin: 04/26/18 12:36 Dose: 10 mg Naloxone HCl (Narcan) 0.2 mg IV Q2M PRN PRN Reason: Opioid Reversal Ondansetron HCl (Zofran) 4 mg IVP Q6H PRN PRN Reason: Nausea And Vomiting Last Admin: 04/26/18 15:10 Dose: 4 mg Pantoprazole Sodium (Protonix) 40 mg IV DAILY [facility] Last Admin: 04/26/18 09:22 Dose: 40 mg Trimethobenzamide HCl (Tigan) 300 mg PO QID PRN PRN Reason: Nausea And Vomiting Home Medications Medication Instructions Recorded Confirmed Type Levothyroxine Sodium [Synthroid] 50 mcg PO DAILY 04/23/18 04/23/18 History Allergies Allergy/AdvReac Type Severity Reaction Status Date / Time No Known Allergies Allergy Verified 04/23/18 15:53 Physical Exam Vitals: Vital Signs Temp Pulse Resp BP Pulse Ox 04/26/18 15:00 98.4 F 95 16 120/78 92 L 04/26/18 08:07 99.0 F 110 H 17 131/83 92 L 04/25/18 23:13 98.4 F 106 H 17 125/80 94 L 04/25/18 20:28 99.0 F 04/25/18 19:41 97 04/25/18 19:33 100.6 F H 110 H 16 98/65 87 L Intake and Output 04/26/18 04/26/18 04/26/18 06:59 14:59 22:59 Intake Total 960 0 Output Total 330 Balance 630 0 Intake: Intake, IV Titration 960 Amount Sodium Chloride 0.9% 1, 960 000 ml @ 120 mls/hr IV . Q8H20M [facility] Rx#:[id number] Oral 0 Output: Drainage 30 Left Lower Abdomen 30 Emesis 300 Other: Voiding Method Toilet # Voids 1 # Bowel Movements 1 Patient appears uncomfortable because of nausea HEENT: Anicteric conjunctiva are pink and moist nasal mucosa grossly intact without significant lesions, there is no thrush. Neck: The neck is supple without significant lymphadenopathy or thyromegaly. Lungs: Good bilateral air entry without significant crackles or wheezing. There is no significant bronchial sounds. There is no egophony or dullness. Heart: Regular rate and rhythm with an audible S1-S2, no S3 no S4. There is no significant murmur click or rub, PMI was nondisplaced. Abdomen: Bowel sounds are positive, still significant tenderness right lower quadrant on deep exam but no guarding or rebound. No palpable mass or organomegaly. Extremities: The upper extremities have excellent pulses they are symmetric, no significant petechiae or telangiectasia. No splinter hemorrhages were noted. The lower extremities are free from significant edema. The peripheral pulses were 2+ and symmetric. Neuro: Awake alert oriented to person place and time. There are no acute new gross focal sensory motor deficits. Results CBC & Chem 7: 04/26/18 08:00 04/23/18 15:21 Labs: Abnormal Lab Results - Last 24 Hours (Table) 04/26/18 Range/Units 08:00 WBC 14.0 H (3.8-10.6) k/uL RBC 3.77 L (3.80-5.40) m/uL Hgb 11.0 L (11.4-16.0) gm/dL Neutrophils # 12.6 H (1.3-7.7) k/uL Lymphocytes # 0.8 L (1.0-4.8) k/uL Microbiology - Last 24 Hours (Table) 04/25/18 02:45 Urine Culture - Final Urine,Voided 04/24/18 20:04 Blood Culture - Preliminary Blood No Growth after 24 hours 04/24/18 19:52 Blood Culture - Preliminary Blood No Growth after 24 hours 04/24/18 18:50 Gram Stain - Preliminary Appendix Wound Culture - Preliminary Gram Neg Bacilli Laboratory Results WBC 14.0 k/uL (3.8-10.6) H 04/26/18 08:00 RBC 3.77 m/uL (3.80-5.40) L 04/26/18 08:00 Hgb 11.0 gm/dL (11.4-16.0) L 04/26/18 08:00 Hct 35.0 % (34.0-46.0) 04/26/18 08:00 MCV 92.7 fL (80.0-100.0) 04/26/18 08:00 MCH 29.3 pg (25.0-35.0) 04/26/18 08:00 MCHC 31.6 g/dL (31.0-37.0) 04/26/18 08:00 RDW 12.5 % (11.5-15.5) 04/26/18 08:00 Plt Count 234 k/uL (150-450) 04/26/18 08:00 Neutrophils % 91 % 04/26/18 08:00 Lymphocytes % 6 % 04/26/18 08:00 Monocytes % 3 % 04/26/18 08:00 Eosinophils % 1 % 04/26/18 08:00 Basophils % 0 % 04/26/18 08:00 Neutrophils # 12.6 k/uL (1.3-7.7) H 04/26/18 08:00 Lymphocytes # 0.8 k/uL (1.0-4.8) L 04/26/18 08:00 Monocytes # 0.4 k/uL (0-1.0) 04/26/18 08:00 Eosinophils # 0.1 k/uL (0-0.7) 04/26/18 08:00 Basophils # 0.0 k/uL (0-0.2) 04/26/18 08:00 Sodium 138 mmol/L (137-145) 04/23/18 15:21 Potassium 4.2 mmol/L (3.5-5.1) 04/23/18 15:21 Chloride 103 mmol/L (98-107) 04/23/18 15:21 Carbon Dioxide 24 mmol/L (22-30) 04/23/18 15:21 Anion Gap 11 mmol/L 04/23/18 15:21 BUN 15 mg/dL (7-17) 04/23/18 15:21 Creatinine 0.81 mg/dL (0.52-1.04) 04/23/18 15:21 Est GFR (CKD-EPI)AfAm >90 (>60 ml/min/1.73 sqM) 04/23/18 15:21 Est GFR (CKD-EPI)NonAf 86 (>60 ml/min/1.73 sqM) 04/23/18 15:21 Glucose 123 mg/dL (74-99) H 04/23/18 15:21 Calcium 9.6 mg/dL (8.4-10.2) 04/23/18 15:21 Magnesium 1.8 mg/dL (1.6-2.3) 04/25/18 07:20 Total Bilirubin 0.7 mg/dL (0.2-1.3) 04/23/18 15:21 AST 38 U/L (14-36) H 04/23/18 15:21 ALT 41 U/L (9-52) 04/23/18 15:21 Alkaline Phosphatase 102 U/L (38-126) 04/23/18 15:21 Total Protein 7.9 g/dL (6.3-8.2) 04/23/18 15:21 Albumin 4.3 g/dL (3.5-5.0) 04/23/18 15:21 Lipase 47 U/L (23-300) 04/23/18 15:21 Urine Color Yellow 04/25/18 02:45 Urine Appearance Cloudy (Clear) H 04/25/18 02:45 Urine pH 5.0 (5.0-8.0) 04/25/18 02:45 Ur Specific [place] 1.019 (1.001-1.035) 04/25/18 02:45 Urine Protein 1+ (Negative) H 04/25/18 02:45 Urine Glucose (UA) Negative (Negative) 04/25/18 02:45 Urine Ketones 2+ (Negative) H 04/25/18 02:45 Urine Blood Small (Negative) H 04/25/18 02:45 Urine Nitrite Negative (Negative) 04/25/18 02:45 Urine Bilirubin Negative (Negative) 04/25/18 02:45 Urine Urobilinogen <2.0 mg/dL (<2.0) 04/25/18 02:45 Ur Leukocyte Esterase Negative (Negative) 04/25/18 02:45 Urine RBC 9 /hpf (0-5) H 04/25/18 02:45 Urine WBC 8 /hpf (0-5) H 04/25/18 02:45 Ur Squamous Epith Cells 1 /hpf (0-4) 04/25/18 02:45 Uric Acid Crystals Occasional /hpf (None) H 04/25/18 02:45 Amorphous Sediment Rare /hpf (None) H 04/25/18 02:45 Urine Bacteria Occasional /hpf (None) H 04/25/18 02:45 Urine Mucus Rare /hpf (None) H 04/25/18 02:45 Microbiology 04/25/18 02:45 Urine,Voided Urine Culture - Final 04/24/18 20:04 Blood Blood Culture - Preliminary No Growth after 24 hours 04/24/18 19:52 Blood Blood Culture - Preliminary No Growth after 24 hours 04/24/18 18:50 Appendix Gram Stain - Preliminary 04/24/18 18:50 Appendix Wound Culture - Preliminary Gram Neg Bacilli 04/24/18 18:50 Appendix Anaerobic Culture - Preliminary Assessment and Plan (1) Acute appendicitis Narrative/Plan: 52 year old female presents to Hospital with a relatively short history of progressive abdominal pain that associated with the sudden increase of abdominal pain in the right lower quadrant associated with nausea generalized malaise and fever. She presented to the emergency room and there was evidence of an acute appendicitis and she was taken to the operating room where a nearly ruptured appendix was removed and lavage of the purulence in the right lower quadrant and evidence of peritonitis. Postoperatively she continues to have some nausea and emesis. Still feels poorly with fever and leukocytosis are trending to improvement. The patient does have a known history of prior bacterial vaginosis were she was treated with metronidazole with severe nausea constantly unconcerned at the current metronidazole could be causing the same problem. She is on piperacillin tazobactam and metronidazole is not needed as additional therapy in this situation and constantly has been discontinued.. Culture is pending gram-negative bacilli are seen which are usual pathogens in this situation. We'll add in some Tigan to see if this cannot help with her current nausea and near emesis. Pain control seems to be somewhat adequate at this point in time. We'll expect her leukocytosis to continue to improve as treatment of the appendicitis continues in her nausea resolves, nausea can cause leukocytosis. Current Visit: Yes Status: Acute Code(s): K35.80 - UNSPECIFIED ACUTE APPENDICITIS SNOMED Code(s): 70621569 (2) Peritonitis Current Visit: Yes Status: Acute Code(s): K65.9 - PERITONITIS, UNSPECIFIED SNOMED Code(s): 01127255 (3) Leukocytosis Current Visit: Yes Status: Acute Code(s): D72.829 - ELEVATED WHITE BLOOD CELL COUNT, UNSPECIFIED SNOMED Code(s): 064639217 (4) Nausea & vomiting Current Visit: Yes Status: Acute Code(s): R11.2 - NAUSEA WITH VOMITING, UNSPECIFIED SNOMED Code(s): 82530055
[2018-04-26] MEDS: LACTATED RINGERS 1,000 ML IV SCH (16:55)
[2018-04-26] MEDS ORDERED: metroNIDAZOLE-NS PMX 500 MG in SALINE 1 100ML.BAG IVPB SCH (18:00)
[2018-04-26] MEDS: NICOTINE 14MG/24HR PATCH TRANSDERM SCH (18:15)
--- NOTE | 2018-04-26 18:24 | CONS ---
CONSULTATION DATE OF CONSULTATION: 04/26/2018 REASON FOR CONSULTATION: Medical management requested by Dr. Canchola. CONSULTATION: This is a pleasant 52-year-old patient who follows with Dr. Callejas. Chronic stable medical conditions include obesity, hypothyroid, irritable bowel syndrome, nicotine dependence. Patient on Saturday, that is 5 days ago in the evening started having increasing abdominal pain in to the night, started becoming much worse. The patient started having nausea. Next morning it became much worse, and then patient decided not to go into work, started having nausea, vomiting, and finally decided to come down to the ER on Saturday. CT scan did show acute appendicitis. Patient was taken in for surgery on Saturday by Dr. Canchola and patient was found to have a gangrenous necrotizing appendicitis with peritonitis. Abdomen was irrigated with 0.5 L of normal saline. GERTRUDE drain was placed at the localized phlegmon in the right lower quadrant and appendectomy was carried out. Peritonitis was noted with exudates around. Patient has been on IV Zosyn, IV pain medications. Patient is having some nausea. Abdominal pain is present sitting up in bed. Patient's sister is visiting currently. Patient does smoke cigarettes. Patient states she has had irritable bowel syndrome diagnosis since her gallbladder was taken out. Patient has passed some flatus. REVIEW OF SYSTEMS: CONSTITUTIONAL: Weak, tired. HEENT: None. RESPIRATORY: Recent upper respiratory tract. CARDIOVASCULAR: None. GASTROINTESTINAL: As above. GENITOURINARY: None. MUSCULOSKELETAL: None. DERMATOLOGICAL: None. HEMATOLOGIC: None. LYMPHATICS: None. PSYCHIATRY: None. NEUROLOGICAL: None. PAST MEDICAL HISTORY: Hypothyroid, irritable bowel syndrome, UTI. PAST SURGICAL HISTORY: Ablation, cholecystectomy, tonsillectomy, tummy tuck, uterine ablation. SOCIAL HISTORY: . Smokes half a pack a day for over 35 years. Denies use of alcohol. Takes care of intellectually impaired people. FAMILY HISTORY: Hypertension, rheumatic fever. HOME MEDICATIONS: Synthroid 50 mcg a day. ALLERGIES: None. PHYSICAL EXAMINATION: Temperature 98.4, pulse 95, respirations 16, blood pressure 120/78, pulse ox 92% on room air. GENERAL APPEARANCE: Well built, BMI 36, sitting up, comfortable. EYES: Pupils equal, conjunctivae normal. HEENT: External appearance of nose and ears normal. Oral cavity slightly dry, prominent eyes. NECK: JVD not raised. Mass not palpable. RESPIRATORY: Effort normal. LUNGS: Decreased breath sounds. CARDIOVASCULAR: First and second sounds normal. No edema. ABDOMEN: Some tenderness, GERTRUDE drain on the left side. Incision healing well. Liver and spleen not palpable. Bowel sounds are present. LYMPHATIC: No lymph node palpable in neck or axillae. PSYCHIATRY: Alert and oriented x3. Mood and affect normal. NEUROLOGICAL Pupils equal. Cranial nerves grossly intact. Power and sensation grossly intact. INVESTIGATIONS: White count 11, hemoglobin 11.6, potassium 4.2. BUN and creatinine normal. CT scan results noted. ASSESSMENT: 1. Acute gangrenous appendicitis causing peritonitis and a localized phlegmon, now requiring a GERTRUDE drain, causing sepsis on presentation with fever and tachycardia. 2. Obesity, body mass index 36. 3. Chronic irritable bowel syndrome. 4. Hypothyroid. 5. Chronic nicotine dependence, patient is a cigarette smoker. 6. Nausea, probably a combination of patient having a gastrointestinal infection and pain medications. PLAN: 1. Patient is currently on IV Zosyn, also getting antiemetics, getting IV fluids, encourage the patient to be out of bed. GERTRUDE drain remains in place. Dr. Beltran has also been consulted from Infectious Disease who is coordinating the antibiotics. Patient's white count has started to come down. 2. Smoke cessation counseling was done with the patient. More than 3 minutes was spent. Patient will be given a nicotine patch. This was discussed with the patient. Thank you, Dr. Canchola. MMMARITOL / SRUTHIN: [id number] /
[2018-04-27] MEDS: KETOROLAC 30 MG/ML 1 ML VIAL IVP SCH ×4 (02:21→20:49)
[2018-04-27] MEDS: PIPERACILLIN-TAZOBACTAM 3.375 GM in SODIUM CHLORIDE 0.9% 100 ML IVPB SCH ×3 (05:33→21:49)
[2018-04-27] MEDS: METOCLOPRAMIDE 5 MG/ML 2 ML VIAL IVP SCH ×3 (05:33→18:05)
[2018-04-27] MEDS: LEVOTHYROXINE 50 MCG TAB PO SCH (05:33)
[2018-04-27] MEDS: SODIUM CHLORIDE 0.9% 1,000 ML IV SCH ×2 (05:33→16:11)
[2018-04-27 07:49] LABS: Basophils % (A) 0 %; Eosinophils # (A) 0.1 k/uL (0-0.7); Eosinophils % (A) 0 %; HCT 31.9 % (34.0-46.0); HGB 10.8 gm/dL (11.4-16.0); Lymphocytes # (A) 0.6 k/uL (1.0-4.8); Lymphocytes % (A) 4 %; MCH 31.2 pg (25.0-35.0); MCHC 33.7 g/dL (31.0-37.0); MCV 92.5 fL (80.0-100.0); Mean Platelet Volume 6.8; Monocytes # (A) 0.7 k/uL (0-1.0); Monocytes % (A) 4 %; Neutrophils # (A) 13.3 k/uL (1.3-7.7); Neutrophils % (A) 91 %; Platelet Count 258 k/uL (150-450); RBC 3.45 m/uL (3.80-5.40); RDW 12.5 % (11.5-15.5); WBC 14.6 k/uL (3.8-10.6)
[2018-04-27] MEDS: guaiFENesin 600 MG TABLET.ER PO PRN (08:49)
[2018-04-27] MEDS: ENOXAPARIN 40 MG/0.4 ML SYRINGE SQ SCH (08:49)
[2018-04-27] MEDS: PANTOPRAZOLE 40 MG/10 ML VIAL IV SCH (08:49)
[2018-04-27] MEDS: ONDANSETRON 4 MG/2 ML VIAL IVP PRN (08:53)
[2018-04-27] MEDS: NICOTINE 14MG/24HR PATCH TRANSDERM SCH (08:55)
--- NOTE | 2018-04-27 10:57 | P.PN ---
Subjective Progress Note Date: 04/26/18 CHIEF COMPLAINT: Gangrene appendicitis with peritonitis HISTORY OF PRESENT ILLNESS: The patient is a 52-year-old female who is status post appendectomy, 04/24/2018. She is postop day 2. Earlier she had emesis including nausea. Overall pain has improved since time of admission. No fevers this morning. PHYSICAL EXAM: VITAL SIGNS: Reviewed GENERAL: Well-developed in no acute distress. HEENT: No sclera icterus. Extraocular movements grossly intact. Moist buccal mucosa. Head is atraumatic, normocephalic. Hears conversational speech. No nasal drainage. NECK: Supple without lymphadenopathy. CHEST: Non-labored respirations and equal bilateral excursions. CARDIOVASCULAR: Palpable 2+ radial pulses. Regular rate and regular rhythm ABDOMEN: Soft. Mild distention. Decreased tenderness lower abdomen. GERTRUDE serosanguineous MUSCULOSKELETAL: No clubbing, cyanosis. NEUROLOGIC: No focal or lateralizing signs. Cranial nerves II through XII grossly intact. PSYCH: Appropriate affect. Alert and oriented to person, place and time. SKIN: Well perfused. Good skin turgor. LABS: Reviewed ASSESSMENT: 1. Acute appendicitis with gangrene and peritonitis 2. Sepsis PLAN: 1. Will need adjustment of antibiotics pending microbiology cultures 2. Full hospitalization recommended for sepsis with peritonitis 3. Liquid diet and adjustment of antinausea medications Objective - Vital Signs Vital signs: Vital Signs Temp 98.2 F 04/27/18 07:23 Pulse 76 04/27/18 07:23 Resp 18 04/27/18 07:23 BP 110/62 04/27/18 07:23 Pulse Ox 92 L 04/27/18 07:23 Intake & Output 04/26/18 04/27/18 04/27/18 18:59 06:59 18:59 Intake Total 1300 1280 Output Total 50 80 90 Balance 1250 1200 -90 Intake: Intake, IV Titration 1300 1280 Amount D5-0.45% NaCl with KCl 1000 1080 20Meq/l 1,000 ml @ 120 mls/hr IV .Q8H20M [facility] Rx# :[id number] Piperacillin-Tazobactam 3 200 200 .375 gm In Sodium Chloride 0.9% 100 ml @ 25 mls/hr IVPB Q8H [facility] Rx#: [id number] metroNIDAZOLE-NS PMX 500 100 mg In Saline 1 100ml.bag @ 100 mls/hr IVPB Q6HR [facility] Rx#:[id number] Oral 0 Output: Drainage 50 80 90 Left Lower Abdomen 50 80 90 Other: Voiding Method Toilet Toilet Toilet # Voids 3 2 # Bowel Movements 2 - Labs CBC & Chem 7: 04/27/18 07:03 04/23/18 15:21 Labs: Abnormal Lab Results - Last 24 Hours (Table) 04/27/18 Range/Units 07:03 WBC 14.6 H (3.8-10.6) k/uL RBC 3.45 L (3.80-5.40) m/uL Hgb 10.8 L (11.4-16.0) gm/dL Hct 31.9 L (34.0-46.0) % Neutrophils # 13.3 H (1.3-7.7) k/uL Lymphocytes # 0.6 L (1.0-4.8) k/uL Microbiology - Last 24 Hours (Table) 04/24/18 20:04 Blood Culture - Preliminary Blood No Growth after 48 hours 04/24/18 19:52 Blood Culture - Preliminary Blood No Growth after 48 hours 04/24/18 18:50 Gram Stain - Final Appendix Wound Culture - Final Citrobacter braakii 04/25/18 02:45 Urine Culture - Final Urine,Voided Assessment and Plan (1) Acute appendicitis Current Visit: Yes Status: Acute Code(s): K35.80 - UNSPECIFIED ACUTE APPENDICITIS SNOMED Code(s): 08862670 (2) Sepsis Current Visit: Yes Status: Acute Code(s): A41.9 - SEPSIS, UNSPECIFIED ORGANISM SNOMED Code(s): 28985819 (3) Acute appendicitis with generalized peritonitis and gangrene Current Visit: Yes Status: Acute Code(s): K35.20 - ACUTE APPENDICITIS WITH GEN PERITONITIS, WITHOUT ABSCESS; K35.891 - OTHER ACUTE APPENDICITIS WITHOUT PERFORATION, WITH GANGRENE SNOMED Code(s): 98192111 (4) Obesity (BMI 30-39.9) Current Visit: Yes Status: Acute Code(s): E66.9 - OBESITY, UNSPECIFIED SNOMED Code(s): 587204658 (5) Peritonitis Current Visit: Yes Status: Acute Code(s): K65.9 - PERITONITIS, UNSPECIFIED SNOMED Code(s): 04826333
[2018-04-27] MEDS ORDERED: ONDANSETRON 4 MG/2 ML VIAL IVP SCH (12:00)
--- NOTE | 2018-04-27 14:22 | P.PN ---
Subjective Progress Note Date: 04/27/18 CHIEF COMPLAINT: Gangrene appendicitis with peritonitis HISTORY OF PRESENT ILLNESS: The patient is a 52-year-old female who is status post appendectomy, 04/24/2018. She is postop day 3. "I feel much better today.". Her nausea is resolved. Her family is at bedside. She wants to shower. She is passing gas and having bowel movements. No reports of fevers or chills. PHYSICAL EXAM: VITAL SIGNS: Reviewed GENERAL: Well-developed in no acute distress. HEENT: No sclera icterus. Extraocular movements grossly intact. Moist buccal mucosa. Head is atraumatic, normocephalic. Hears conversational speech. No nasal drainage. NECK: Supple without lymphadenopathy. CHEST: Non-labored respirations and equal bilateral excursions. CARDIOVASCULAR: Palpable 2+ radial pulses. Regular rate and regular rhythm ABDOMEN: Soft. No peritonitis. GERTRUDE serosanguineous. MUSCULOSKELETAL: No clubbing, cyanosis. 1+ lower extremity edema. NEUROLOGIC: No focal or lateralizing signs. Cranial nerves II through XII grossly intact. PSYCH: Appropriate affect. Alert and oriented to person, place and time. SKIN: Well perfused. Good skin turgor. LABS: Reviewed ASSESSMENT: 1. Acute appendicitis with gangrene and peritonitis 2. Sepsis PLAN: 1. May shower however protect GERTRUDE drain from being wet 2. Discontinue IV fluids for edema and high urine output 3. Continue IV antibiotics 4. May start regular diet as she is having bowel movements and passing gas 5. Anticipated disposition home in 48 hours pending resolution of leukocytosis 6. She will be discharged with GERTRUDE drain as outpatient 7. teaching advised Objective - Vital Signs Vital signs: Vital Signs Temp 98.2 F 04/27/18 07:23 Pulse 76 04/27/18 07:23 Resp 18 04/27/18 07:23 BP 110/62 04/27/18 07:23 Pulse Ox 92 L 04/27/18 07:23 Intake & Output 04/26/18 04/27/18 04/27/18 18:59 06:59 18:59 Intake Total 1300 1280 Output Total 50 80 90 Balance 1250 1200 -90 Intake: Intake, IV Titration 1300 1280 Amount D5-0.45% NaCl with KCl 1000 1080 20Meq/l 1,000 ml @ 120 mls/hr IV .Q8H20M [facility] Rx# :[id number] Piperacillin-Tazobactam 3 200 200 .375 gm In Sodium Chloride 0.9% 100 ml @ 25 mls/hr IVPB Q8H [facility] Rx#: [id number] metroNIDAZOLE-NS PMX 500 100 mg In Saline 1 100ml.bag @ 100 mls/hr IVPB Q6HR [facility] Rx#:[id number] Oral 0 Output: Drainage 50 80 90 Left Lower Abdomen 50 80 90 Other: Voiding Method Toilet Toilet Toilet # Voids 3 2 # Bowel Movements 2 - Labs CBC & Chem 7: 04/27/18 07:03 04/23/18 15:21 Labs: Abnormal Lab Results - Last 24 Hours (Table) 04/27/18 Range/Units 07:03 WBC 14.6 H (3.8-10.6) k/uL RBC 3.45 L (3.80-5.40) m/uL Hgb 10.8 L (11.4-16.0) gm/dL Hct 31.9 L (34.0-46.0) % Neutrophils # 13.3 H (1.3-7.7) k/uL Lymphocytes # 0.6 L (1.0-4.8) k/uL Microbiology - Last 24 Hours (Table) 04/24/18 20:04 Blood Culture - Preliminary Blood No Growth after 48 hours 04/24/18 19:52 Blood Culture - Preliminary Blood No Growth after 48 hours 04/24/18 18:50 Gram Stain - Final Appendix Wound Culture - Final Citrobacter braakii 04/25/18 02:45 Urine Culture - Final Urine,Voided Assessment and Plan (1) Acute appendicitis Current Visit: Yes Status: Acute Code(s): K35.80 - UNSPECIFIED ACUTE APPENDICITIS SNOMED Code(s): 51713605 (2) Sepsis Current Visit: Yes Status: Acute Code(s): A41.9 - SEPSIS, UNSPECIFIED ORGANISM SNOMED Code(s): 52660112 (3) Acute appendicitis with generalized peritonitis and gangrene Current Visit: Yes Status: Acute Code(s): K35.20 - ACUTE APPENDICITIS WITH GEN PERITONITIS, WITHOUT ABSCESS; K35.891 - OTHER ACUTE APPENDICITIS WITHOUT PERFORATION, WITH GANGRENE SNOMED Code(s): 71360374 (4) Obesity (BMI 30-39.9) Current Visit: Yes Status: Acute Code(s): E66.9 - OBESITY, UNSPECIFIED SNOMED Code(s): 245963128 (5) Peritonitis Current Visit: Yes Status: Acute Code(s): K65.9 - PERITONITIS, UNSPECIFIED SNOMED Code(s): 58737127
--- NOTE | 2018-04-27 15:29 | P.PN ---
Subjective Progress Note Date: 04/27/18 Pleasant 52-year-old female presents to Hospital with a approximate 2 day history of some abdominal discomforts that started. Umbilical and then developed into the right lower quadrant. The patient relates she had the rapid increase of discomfort and her brought her to the emergency center because of her rapid change of status. She will be she had a fever but no chills or rigors. She felt very poorly had nausea without much emesis and did not have significant hematemesis melena or hematochezia. Upon evaluation in the emergency center there is evidence of acute appendicitis by the computed tomography scan and consequently was admitted and surgical consult occurred. Given her symptoms she was taken to the operating room where a nearly ruptured appendix was found with evidence of purulence in the right lower quadrant. Appendectomy and lavage occurred, the patient continues to feel poorly with ongoing nausea and near emesis. Fortunately her fever is improved and leukocytosis also improving. However she still feels quite poorly and a consult was requested. She relates this is the worst she has felt in her whole life including when she had section. 04/27/2018 patient is now feeling considerably better. He is ingesting her clear liquid tray without significant nausea or emesis. The nausea is resolved. Abdominal pains improving. No fevers or chills. Ongoing improvement noted in the last day. Objective - Vital Signs Vital signs: Vital Signs Temp 98.2 F 04/27/18 07:23 Pulse 76 04/27/18 07:23 Resp 18 04/27/18 07:23 BP 110/62 04/27/18 07:23 Pulse Ox 92 L 04/27/18 07:23 Intake & Output 04/26/18 04/27/18 04/27/18 18:59 06:59 18:59 Intake Total 1300 1280 Output Total 50 80 90 Balance 1250 1200 -90 Intake: Intake, IV Titration 1300 1280 Amount D5-0.45% NaCl with KCl 1000 1080 20Meq/l 1,000 ml @ 120 mls/hr IV .Q8H20M [facility] Rx# :[id number] Piperacillin-Tazobactam 3 200 200 .375 gm In Sodium Chloride 0.9% 100 ml @ 25 mls/hr IVPB Q8H [facility] Rx#: [id number] metroNIDAZOLE-NS PMX 500 100 mg In Saline 1 100ml.bag @ 100 mls/hr IVPB Q6HR [facility] Rx#:[id number] Oral 0 Output: Drainage 50 80 90 Left Lower Abdomen 50 80 90 Other: Voiding Method Toilet Toilet Toilet # Voids 3 2 # Bowel Movements 2 - Exam Patient appears more comfortable today, nausea has resolved HEENT: Anicteric conjunctiva are pink and moist nasal mucosa grossly intact without significant lesions, there is no thrush. Neck: The neck is supple without significant lymphadenopathy or thyromegaly. Lungs: Good bilateral air entry without significant crackles or wheezing. There is no significant bronchial sounds. There is no egophony or dullness. Heart: Regular rate and rhythm with an audible S1-S2, no S3 no S4. There is no significant murmur click or rub, PMI was nondisplaced. Abdomen: Bowel sounds are positive, improvement in the tenderness right lower quadrant on deep exam but no guarding or rebound. No palpable mass or organomegaly. Extremities: The upper extremities have excellent pulses they are symmetric, no significant petechiae or telangiectasia. No splinter hemorrhages were noted. The lower extremities are free from significant edema. The peripheral pulses were 2+ and symmetric. Neuro: Awake alert oriented to person place and time. There are no acute new gross focal sensory motor deficits. - Labs CBC & Chem 7: 04/27/18 07:03 04/23/18 15:21 Labs: Abnormal Lab Results - Last 24 Hours (Table) 04/27/18 Range/Units 07:03 WBC 14.6 H (3.8-10.6) k/uL RBC 3.45 L (3.80-5.40) m/uL Hgb 10.8 L (11.4-16.0) gm/dL Hct 31.9 L (34.0-46.0) % Neutrophils # 13.3 H (1.3-7.7) k/uL Lymphocytes # 0.6 L (1.0-4.8) k/uL Microbiology - Last 24 Hours (Table) 04/24/18 20:04 Blood Culture - Preliminary Blood No Growth after 48 hours 04/24/18 19:52 Blood Culture - Preliminary Blood No Growth after 48 hours 04/24/18 18:50 Gram Stain - Final Appendix Wound Culture - Final Citrobacter braakii 04/25/18 02:45 Urine Culture - Final Urine,Voided Laboratory Results WBC 14.6 k/uL (3.8-10.6) H 04/27/18 07:03 RBC 3.45 m/uL (3.80-5.40) L 04/27/18 07:03 Hgb 10.8 gm/dL (11.4-16.0) L 04/27/18 07:03 Hct 31.9 % (34.0-46.0) L 04/27/18 07:03 MCV 92.5 fL (80.0-100.0) 04/27/18 07:03 MCH 31.2 pg (25.0-35.0) 04/27/18 07:03 MCHC 33.7 g/dL (31.0-37.0) 04/27/18 07:03 RDW 12.5 % (11.5-15.5) 04/27/18 07:03 Plt Count 258 k/uL (150-450) 04/27/18 07:03 Neutrophils % 91 % 04/27/18 07:03 Lymphocytes % 4 % 04/27/18 07:03 Monocytes % 4 % 04/27/18 07:03 Eosinophils % 0 % 04/27/18 07:03 Basophils % 0 % 04/27/18 07:03 Neutrophils # 13.3 k/uL (1.3-7.7) H 04/27/18 07:03 Lymphocytes # 0.6 k/uL (1.0-4.8) L 04/27/18 07:03 Monocytes # 0.7 k/uL (0-1.0) 04/27/18 07:03 Eosinophils # 0.1 k/uL (0-0.7) 04/27/18 07:03 Basophils # 0.0 k/uL (0-0.2) 04/27/18 07:03 Sodium 138 mmol/L (137-145) 04/23/18 15:21 Potassium 4.2 mmol/L (3.5-5.1) 04/23/18 15:21 Chloride 103 mmol/L (98-107) 04/23/18 15:21 Carbon Dioxide 24 mmol/L (22-30) 04/23/18 15:21 Anion Gap 11 mmol/L 04/23/18 15:21 BUN 15 mg/dL (7-17) 04/23/18 15:21 Creatinine 0.81 mg/dL (0.52-1.04) 04/23/18 15:21 Est GFR (CKD-EPI)AfAm >90 (>60 ml/min/1.73 sqM) 04/23/18 15:21 Est GFR (CKD-EPI)NonAf 86 (>60 ml/min/1.73 sqM) 04/23/18 15:21 Glucose 123 mg/dL (74-99) H 04/23/18 15:21 Calcium 9.6 mg/dL (8.4-10.2) 04/23/18 15:21 Magnesium 1.8 mg/dL (1.6-2.3) 04/25/18 07:20 Total Bilirubin 0.7 mg/dL (0.2-1.3) 04/23/18 15:21 AST 38 U/L (14-36) H 04/23/18 15:21 ALT 41 U/L (9-52) 04/23/18 15:21 Alkaline Phosphatase 102 U/L (38-126) 04/23/18 15:21 Total Protein 7.9 g/dL (6.3-8.2) 04/23/18 15:21 Albumin 4.3 g/dL (3.5-5.0) 04/23/18 15:21 Lipase 47 U/L (23-300) 04/23/18 15:21 Urine Color Yellow 04/25/18 02:45 Urine Appearance Cloudy (Clear) H 04/25/18 02:45 Urine pH 5.0 (5.0-8.0) 04/25/18 02:45 Ur Specific Geraldine 1.019 (1.001-1.035) 04/25/18 02:45 Urine Protein 1+ (Negative) H 04/25/18 02:45 Urine Glucose (UA) Negative (Negative) 04/25/18 02:45 Urine Ketones 2+ (Negative) H 04/25/18 02:45 Urine Blood Small (Negative) H 04/25/18 02:45 Urine Nitrite Negative (Negative) 04/25/18 02:45 Urine Bilirubin Negative (Negative) 04/25/18 02:45 Urine Urobilinogen <2.0 mg/dL (<2.0) 04/25/18 02:45 Ur Leukocyte Esterase Negative (Negative) 04/25/18 02:45 Urine RBC 9 /hpf (0-5) H 04/25/18 02:45 Urine WBC 8 /hpf (0-5) H 04/25/18 02:45 Ur Squamous Epith Cells 1 /hpf (0-4) 04/25/18 02:45 Uric Acid Crystals Occasional /hpf (None) H 04/25/18 02:45 Amorphous Sediment Rare /hpf (None) H 04/25/18 02:45 Urine Bacteria Occasional /hpf (None) H 04/25/18 02:45 Urine Mucus Rare /hpf (None) H 04/25/18 02:45 Microbiology 04/24/18 20:04 Blood Blood Culture - Preliminary No Growth after 48 hours 04/24/18 19:52 Blood Blood Culture - Preliminary No Growth after 48 hours 04/24/18 18:50 Appendix Gram Stain - Final 04/24/18 18:50 Appendix Wound Culture - Final Citrobacter braakii 04/25/18 02:45 Urine,Voided Urine Culture - Final 04/24/18 18:50 Appendix Anaerobic Culture - Preliminary Assessment and Plan (1) Acute appendicitis Narrative/Plan: 52 year old female presents to Hospital with a relatively short history of progressive abdominal pain that associated with the sudden increase of abdominal pain in the right lower quadrant associated with nausea generalized malaise and fever. She presented to the emergency room and there was evidence of an acute appendicitis and she was taken to the operating room where a nearly ruptured appendix was removed and lavage of the purulence in the right lower quadrant and evidence of peritonitis. Postoperatively she continues to have some nausea and emesis. Still feels poorly with fever and leukocytosis are trending to improvement. The patient does have a known history of prior bacterial vaginosis were she was treated with metronidazole with severe nausea constantly unconcerned at the current metronidazole could be causing the same problem. She is on piperacillin tazobactam and metronidazole is not needed as additional therapy in this situation and constantly has been discontinued.. Culture is pending gram-negative bacilli are seen which are usual pathogens in this situation. We'll add in some Tigan to see if this cannot help with her current nausea and near emesis. Pain control seems to be somewhat adequate at this point in time. We'll expect her leukocytosis to continue to improve as treatment of the appendicitis continues in her nausea resolves, nausea can cause leukocytosis. 04/27/2018 patient is now feeling considerably better with the removal of the metronidazole and resolution of her nausea. We'll expect a leukocytosis to start to improve with the current antibiotic therapy, rehydration, and resolution of her nausea. Surgery is following we'll work to improve her diet and anticipate discharge to home in about 48 hours will be able to direct antibiotic therapy close to discharge. Current Visit: Yes Status: Acute Code(s): K35.80 - UNSPECIFIED ACUTE APPENDICITIS SNOMED Code(s): 05886843 (2) Peritonitis Current Visit: Yes Status: Acute Code(s): K65.9 - PERITONITIS, UNSPECIFIED SNOMED Code(s): 21847880 (3) Leukocytosis Current Visit: Yes Status: Acute Code(s): D72.829 - ELEVATED WHITE BLOOD CELL COUNT, UNSPECIFIED SNOMED Code(s): 254738904 (4) Nausea & vomiting Current Visit: Yes Status: Acute Code(s): R11.2 - NAUSEA WITH VOMITING, UNSPECIFIED SNOMED Code(s): 00661406
[2018-04-27] MEDS: ONDANSETRON 4 MG/2 ML VIAL IVP SCH ×2 (15:31→20:45)
[2018-04-27] MEDS: D5-0.45% NACL WITH KCL 20MEQ/L 1,000 ML IV SCH (16:11)
[2018-04-27] MEDS ORDERED: ZOLPIDEM 5 MG TAB PO PRN (18:02)
[2018-04-28] MEDS: METOCLOPRAMIDE 5 MG/ML 2 ML VIAL IVP SCH ×4 (01:24→19:04)
--- NOTE | 2018-04-28 01:27 | PN ---
PROGRESS NOTE DATE OF SERVICE: April 27, 2018. PRESENTING COMPLAINT: Abdominal pain. INTERVAL HISTORY: This patient admitted, underwent surgery for gangrenous appendicitis, nausea, much improved. Currently on a regular diet, has got a GERTRUDE drain that is still putting out some intraabdominal secretions. The patient had some loose stools. Overall feeling better. Sitting up in a chair. REVIEW OF SYSTEMS: Done for constitutional, cardiovascular, GI, pulmonary and relevant findings as above. CURRENT MEDICATIONS: Reviewed that include IV Zosyn. PHYSICAL EXAMINATION: VITAL SIGNS: Temperature 98. Pulse 114, respirations 16, blood pressure 117/83, pulse ox 96% on room air. GENERAL APPEARANCE: Sitting up in a chair, awake. EYES: Pupils equal. Conjunctivae normal. NECK: JVD not raised. Mass not palpable. RESPIRATORY effort normal. LUNGS: Clear. CARDIOVASCULAR: 1st and 2nd sounds normal. No edema. ABDOMEN: Soft. Some tenderness. GERTRUDE drain in place. PSYCHIATRY: Alert and oriented x3. Mood and affect normal. INVESTIGATIONS: White count 14.6, hemoglobin 10.8. The patient's wound cultures growing Citrobacter brachii. ASSESSMENT: 1. Acute gangrenous appendicitis causing peritonitis and localized phlegmon. Cultures growing Citrobacter brachii. A GERTRUDE drain in place causing sepsis on presentation. 2. Obesity, BMI 36. 3. Chronic irritable bowel syndrome. 4. Hypothyroid. 5. Chronic nicotine dependence patient is a cigarette smoker. 6. Nausea, multifactorial, now improved. 7. Normocytic anemia, probably acute blood loss as expected from surgery. PLAN: Continue current medication and treatment plan. The patient is ambulating better. Like to see the white count is coming down. The patient is overall looking better. MMODL / IJN: [id number] /
[2018-04-28] MEDS: KETOROLAC 30 MG/ML 1 ML VIAL IVP SCH ×4 (02:47→20:31)
[2018-04-28] MEDS: ONDANSETRON 4 MG/2 ML VIAL IVP SCH ×4 (02:47→20:31)
[2018-04-28] MEDS: PIPERACILLIN-TAZOBACTAM 3.375 GM in SODIUM CHLORIDE 0.9% 100 ML IVPB SCH ×3 (05:26→22:23)
[2018-04-28 08:27] LABS: Basophils % (A) 0 %; Eosinophils # (A) 0.2 k/uL (0-0.7); Eosinophils % (A) 2 %; HCT 33.3 % (34.0-46.0); HGB 11.2 gm/dL (11.4-16.0); Lymphocytes # (A) 1.5 k/uL (1.0-4.8); Lymphocytes % (A) 14 %; MCH 30.6 pg (25.0-35.0); MCHC 33.5 g/dL (31.0-37.0); MCV 91.3 fL (80.0-100.0); Mean Platelet Volume 6.6; Monocytes # (A) 0.6 k/uL (0-1.0); Monocytes % (A) 6 %; Neutrophils # (A) 7.7 k/uL (1.3-7.7); Neutrophils % (A) 75 %; Platelet Count 304 k/uL (150-450); RBC 3.65 m/uL (3.80-5.40); RDW 12.8 % (11.5-15.5); WBC 10.2 k/uL (3.8-10.6)
[2018-04-28] MEDS: LEVOTHYROXINE 50 MCG TAB PO SCH (08:34)
[2018-04-28] MEDS: ENOXAPARIN 40 MG/0.4 ML SYRINGE SQ SCH (08:55)
[2018-04-28] MEDS: PANTOPRAZOLE 40 MG/10 ML VIAL IV SCH (08:55)
[2018-04-28] MEDS: NICOTINE 14MG/24HR PATCH TRANSDERM SCH (08:56)
--- NOTE | 2018-04-28 11:36 | P.PN ---
<Carla Awan Lamar - Last Filed: 04/28/18 15:21> Subjective Progress Note Date: 04/28/18 52-year-old female who underwent appendectomy secondary to gangrenous necrotizing appendicitis. She is postop day 4. She is evaluated at the bedside. She reports her pain is tolerable at this time. GERTRUDE drain is intact. Currently full and needs to be emptied. Dressing saturated. Spoke with nursing who will empty GERTRUDE and change dressing.Tolerating regular diet. Reports passing flatus and having BMs. Denies nausea or vomiting. WBC 10.2. She is afebrile. She is currently receiving Zosyn. Infectious disease is following. PHYSICAL EXAM: GENERAL: This is a 52-year-old female in no apparent distress at the time of examination. HEENT: Head is atraumatic, normocephalic. Pupils are equal, round, and reactive to light. Sclerae anicteric. Conjunctivae are clear. RESPIRATORY: Nonlabored respirations and equal bilateral excursions. CARDIOVASCULAR: Regular rate and rhythm. GASTROINTESTINAL: Abdomen soft and round. Surgical dressing clean dry and intact. GERTRUDE drain with serous output. Bowel sounds auscultated 4 quadrants. INTEGUMENTARY: No cyanosis. No jaundice. No rashes noted. No cellulitis noted. EXTREMITIES: 2+ peripheral pulses. No evidence of peripheral edema. NEUROLOGIC: No focal or lateralizing signs. PSYCHIATRIC: Awake, alert, and oriented X 3. Appropriate affect. Intact judgement and insight. ASSESSMENT: Gangrenous necrotizing appendicitis, status post appendectomy POD #4 Sepsis, secondary to above Peritonitis Obesity BMI 36.0 Nicotine dependence PLAN: Continue regular diet. Await discharge antibiotic recommendations from infectious disease. Increase activity. Empty GERTRUDE drain. Change dressing at GERTRUDE site. Will discontinue GERTRUDE drain tomorrow. Begin Red [place] 7.5mg. Try to decrease amount of IV narcotics. Scopolamine patch. Anticipate discharge home tomorrow. Nurse practitioner note has been reviewed by physician. Signing provider agrees with the documented findings, assessment, and plan of care. Objective - Vital Signs Vital signs: Vital Signs Temp 98.1 F 04/28/18 08:31 Pulse 84 04/28/18 08:31 Resp 16 04/28/18 08:31 BP 105/71 04/28/18 08:31 Pulse Ox 96 04/28/18 08:31 Intake & Output 04/27/18 04/28/18 04/28/18 18:59 06:59 18:59 Intake Total 1476 100 Output Total 170 30 100 Balance 1306 70 -100 Intake: Intake, IV Titration 1000 100 Amount D5-0.45% NaCl with KCl 1000 20Meq/l 1,000 ml @ 120 mls/hr IV .Q8H20M [facility] Rx# :[id number] Piperacillin-Tazobactam 3 100 .375 gm In Sodium Chloride 0.9% 100 ml @ 25 mls/hr IVPB Q8H [facility] Rx#: [id number] Oral 476 Output: Drainage 170 100 Left Lower Abdomen 170 100 Emesis 30 Other: Voiding Method Toilet Toilet # Voids 3 # Bowel Movements 2 - Labs CBC & Chem 7: 04/28/18 08:00 04/28/18 08:00 Labs: Abnormal Lab Results - Last 24 Hours (Table) 04/28/18 Range/Units 08:00 RBC 3.65 L (3.80-5.40) m/uL Hgb 11.2 L (11.4-16.0) gm/dL Hct 33.3 L (34.0-46.0) % Microbiology - Last 24 Hours (Table) 04/24/18 18:50 Anaerobic Culture - Final Appendix Anaerobic Gm Negative Bacilli 04/24/18 20:04 Blood Culture - Preliminary Blood No Growth after 72 hours 04/24/18 19:52 Blood Culture - Preliminary Blood No Growth after 72 hours Assessment and Plan (1) Obesity (BMI 30-39.9) Current Visit: Yes Status: Acute Code(s): E66.9 - OBESITY, UNSPECIFIED SNOMED Code(s): 463140051 (2) Nicotine dependence Current Visit: Yes Status: Acute Code(s): F17.200 - NICOTINE DEPENDENCE, UNSPECIFIED, UNCOMPLICATED SNOMED Code(s): 24929038 (3) Acute appendicitis Current Visit: Yes Status: Acute Code(s): K35.80 - UNSPECIFIED ACUTE APPENDICITIS SNOMED Code(s): 40575471 (4) Appendicitis Current Visit: Yes Status: Acute Code(s): K37 - UNSPECIFIED APPENDICITIS SNOMED Code(s): 27564052 (5) Peritonitis Current Visit: Yes Status: Acute Code(s): K65.9 - PERITONITIS, UNSPECIFIED SNOMED Code(s): 92583086 <Daksha Canchola N - Last Filed: 04/28/18 16:04> Objective - Vital Signs Vital signs: Vital Signs Temp 98.3 F 04/28/18 14:54 Pulse 82 04/28/18 14:54 Resp 16 04/28/18 08:31 BP 102/77 04/28/18 14:54 Pulse Ox 96 04/28/18 14:54 Intake & Output 04/27/18 04/28/18 04/28/18 18:59 06:59 18:59 Intake Total 1476 100 Output Total 170 30 100 Balance 1306 70 -100 Intake: Intake, IV Titration 1000 100 Amount D5-0.45% NaCl with KCl 1000 20Meq/l 1,000 ml @ 120 mls/hr IV .Q8H20M [facility] Rx# :[id number] Piperacillin-Tazobactam 3 100 .375 gm In Sodium Chloride 0.9% 100 ml @ 25 mls/hr IVPB Q8H [facility] Rx#: [id number] Oral 476 Output: Drainage 170 100 Left Lower Abdomen 170 100 Emesis 30 Other: Voiding Method Toilet Toilet # Voids 3 # Bowel Movements 2 - Labs CBC & Chem 7: 04/28/18 08:00 04/28/18 08:00 Labs: Abnormal Lab Results - Last 24 Hours (Table) 04/28/18 04/28/18 Range/Units 08:00 08:00 RBC 3.65 L (3.80-5.40) m/uL Hgb 11.2 L (11.4-16.0) gm/dL Hct 33.3 L (34.0-46.0) % Chloride 115 H (98-107) mmol/L Calcium 8.0 L (8.4-10.2) mg/dL Microbiology - Last 24 Hours (Table) 04/24/18 18:50 Anaerobic Culture - Final Appendix Anaerobic Gm Negative Bacilli 04/24/18 20:04 Blood Culture - Preliminary Blood No Growth after 72 hours 04/24/18 19:52 Blood Culture - Preliminary Blood No Growth after 72 hours Assessment and Plan (1) Acute appendicitis Current Visit: Yes Status: Acute Code(s): K35.80 - UNSPECIFIED ACUTE APPENDICITIS SNOMED Code(s): 51866196 (2) Sepsis Current Visit: Yes Status: Acute Code(s): A41.9 - SEPSIS, UNSPECIFIED ORGANISM SNOMED Code(s): 26234155 (3) Acute appendicitis with generalized peritonitis and gangrene Current Visit: Yes Status: Acute Code(s): K35.20 - ACUTE APPENDICITIS WITH GEN PERITONITIS, WITHOUT ABSCESS; K35.891 - OTHER ACUTE APPENDICITIS WITHOUT PERFORATION, WITH GANGRENE SNOMED Code(s): 70888562 (4) Obesity (BMI 30-39.9) Current Visit: Yes Status: Acute Code(s): E66.9 - OBESITY, UNSPECIFIED SNOMED Code(s): 341453275 (5) Peritonitis Current Visit: Yes Status: Acute Code(s): K65.9 - PERITONITIS, UNSPECIFIED SNOMED Code(s): 95619859 Plan: Patient seen and evaluated. GERTRUDE completely serous. May potentially discontinue GERTRUDE prior to discharge. Adjustment of pain meds advised. Await ID recommendations regarding home antibiotics. Patient reports history of yeast infections. We'll start with Diflucan.
[2018-04-28] MEDS: HYDROmorphone 1 MG/ML 1 ML SYRINGE IVP PRN (12:57)
[2018-04-28 15:06] LABS: Anion Gap 3 mmol/L; Blood Urea Nitrogen 17 mg/dL (7-17); Carbon Dioxide 22 mmol/L (22-30); Chloride 115 mmol/L (98-107); Glucose 91 mg/dL (74-99); Potassium 4.1 mmol/L (3.5-5.1); Sodium 140 mmol/L (137-145)
[2018-04-28] MEDS ORDERED: SCOPOLAMINE 1.5MG/72HR PATCH TRANSDERM SCH (16:00)
[2018-04-28] MEDS ORDERED: FLUCONAZOLE IN NACL,ISO-OSM 100 MG in SALINE 1 50ML.BAG IVPB SCH (16:00)
[2018-04-28] MEDS ORDERED: FLUCONAZOLE 150 MG TAB PO STA (16:05)
[2018-04-28] MEDS: HYDROcodone/APAP 7.5-325MG 1 EACH TAB PO PRN ×2 (16:14→22:19)
[2018-04-28] MEDS: MAGNESIUM SULFATE-D5W PMX 1 GM in DEXTROSE/WATER 1 100ML.BAG IVPB SCH ×3 (17:58→20:30)
[2018-04-28] MEDS: guaiFENesin 600 MG TABLET.ER PO PRN (20:24)
--- NOTE | 2018-04-28 21:06 | P.PN ---
Subjective Progress Note Date: 04/28/18 Progress note being dictated for Dr. Skaggs. Interval history: This a 52-year-old female admitted with acute gangrenous appendicitis, peritonitis and multiple other medical issues. Cultures growing Citrobacter brachii. Maintained on IV antibiotics of Zosyn as per infectious disease. Pain controlled. Complains of ongoing diarrhea. Ambulated in the hallway, tolerating exertion well. Incentive spirometer up to 1500. Afebrile, normal WBC. Fair diet intake, consuming 25% of a regular diet. Denies chest pain, palpitations or increasing shortness of breath. Objective - Vital Signs Vital signs: Vital Signs Temp 98.3 F 04/28/18 14:54 Pulse 82 04/28/18 14:54 Resp 16 04/28/18 16:00 BP 102/77 04/28/18 14:54 Pulse Ox 96 04/28/18 14:54 Intake & Output 04/28/18 04/28/18 04/29/18 06:59 18:59 06:59 Intake Total 100 Output Total 30 140 Balance 70 -140 Intake: Intake, IV Titration 100 Amount Piperacillin-Tazobactam 3 100 .375 gm In Sodium Chloride 0.9% 100 ml @ 25 mls/hr IVPB Q8H [facility] Rx#: [id number] Output: Drainage 140 Left Lower Abdomen 140 Emesis 30 Other: Voiding Method Toilet # Voids 1 - Exam PHYSICAL EXAM: VITAL SIGNS: As above GENERAL: Sitting up in bed, no acute distress HEENT: Conjunctivae normal. eyes normal. Oral mucosa moist NECK: No JVD. No thyroid enlargement. No LNs CARDIOVASCULAR: S1, S2 muffled. No murmur RESPIRATION: Breath sounds diminished in the bases. No rhonchi or crackles. ABDOMEN: Soft, status post surgery positive bowel sounds .GERTRUDE serous drainage. LEGS: No edema. no swelling PSYCHIATRY: Alert and oriented -3, mood and affect normal. NERVOUS SYSTEM: Cranial N 2-12 grossly normal. Moves all 4 limbs. Diffuse weakness No focal deficits. Skin: no rash Microbiology 04/24/18 18:50 Appendix Anaerobic Culture - Final Anaerobic Gm Negative Bacilli 04/24/18 20:04 Blood Blood Culture - Preliminary No Growth after 72 hours 04/24/18 19:52 Blood Blood Culture - Preliminary No Growth after 72 hours 04/24/18 18:50 Appendix Gram Stain - Final 04/24/18 18:50 Appendix Wound Culture - Final Citrobacter braakii 04/25/18 02:45 Urine,Voided Urine Culture - Final - Labs CBC & Chem 7: 04/28/18 08:00 04/28/18 08:00 Labs: Abnormal Lab Results - Last 24 Hours (Table) 04/28/18 04/28/18 Range/Units 08:00 08:00 RBC 3.65 L (3.80-5.40) m/uL Hgb 11.2 L (11.4-16.0) gm/dL Hct 33.3 L (34.0-46.0) % Chloride 115 H (98-107) mmol/L Calcium 8.0 L (8.4-10.2) mg/dL Microbiology - Last 24 Hours (Table) 04/24/18 18:50 Anaerobic Culture - Final Appendix Anaerobic Gm Negative Bacilli 04/24/18 20:04 Blood Culture - Preliminary Blood No Growth after 72 hours 04/24/18 19:52 Blood Culture - Preliminary Blood No Growth after 72 hours Assessment and Plan Assessment: -Acute gangrenous appendicitis causing peritonitis. Cultures growing Citrobacter brachii -Sepsis secondary to the above -Diarrhea, rule out C. diff -Normocytic anemia, probably acute blood loss expected from surgery, improving -Chronic nicotine dependence -Obesity, BMI 36 -Chronic irritable bowel syndrome -Hypothyroid Plan: Continue on current medication regime ,monitoring and symptomatic treatment. Maintained on IV antibiotics as per infectious disease. Patient complaining of multiple episodes of diarrhea, ruling out C. difficile colitis. Questran added to med regime. GI and DVT prophylaxis in place with Lovenox and Protonix. Increase ambulation as tolerated. Aggressive pulmonary toileting with incentive spirometer reinforced. Smoking cessation readdressed. Thank you for allowing us to participate in the care of this nice patient. The impression and plan of care has been dictated as directed. : I performed a history and examination of this patient, discussed the same with the dictator. I agree with the dictator's note ,documented as a scribe. Any additional findings or plans will be noted.
[2018-04-28] MEDS: CHOLESTYRAMINE (WITH SUGAR) 4 GM PACKET PO SCH (23:42)
[2018-04-29] MEDS: METOCLOPRAMIDE 5 MG/ML 2 ML VIAL IVP SCH ×3 (00:05→13:35)
--- NOTE | 2018-04-29 00:21 | P.PN ---
Subjective Progress Note Date: 04/29/18 Pleasant 52-year-old female presents to Hospital with a approximate 2 day history of some abdominal discomforts that started. Umbilical and then developed into the right lower quadrant. The patient relates she had the rapid increase of discomfort and her brought her to the emergency center because of her rapid change of status. She will be she had a fever but no chills or rigors. She felt very poorly had nausea without much emesis and did not have significant hematemesis melena or hematochezia. Upon evaluation in the emergency center there is evidence of acute appendicitis by the computed tomography scan and consequently was admitted and surgical consult occurred. Given her symptoms she was taken to the operating room where a nearly ruptured appendix was found with evidence of purulence in the right lower quadrant. Appendectomy and lavage occurred, the patient continues to feel poorly with ongoing nausea and near emesis. Fortunately her fever is improved and leukocytosis also improving. However she still feels quite poorly and a consult was requested. She relates this is the worst she has felt in her whole life including when she had section. 04/27/2018 patient is now feeling considerably better. He is ingesting her clear liquid tray without significant nausea or emesis. The nausea is resolved. Abdominal pains improving. No fevers or chills. Ongoing improvement noted in the last day. 04/28/2018 patient continues to feel better but is having significant pain related to the drain that is in the right lower quadrant. Her nausea is resolved. She's eating food relatively well without nausea or emesis. Her abdominal pain she's doing well. Is having difficulty changing positions from bed to chair. The tolerates her incentive spirometer well. Denies fevers or chills Objective - Vital Signs Vital signs: Vital Signs Temp 98.2 F 04/28/18 19:00 Pulse 107 H 04/28/18 19:00 Resp 16 04/28/18 19:00 BP 116/78 04/28/18 19:00 Pulse Ox 94 L 04/28/18 19:00 Intake & Output 04/28/18 04/28/18 04/29/18 06:59 18:59 06:59 Intake Total 100 400 Output Total 30 140 Balance 70 -140 400 Intake: Intake, IV Titration 100 400 Amount Magnesium Sulfate-D5w Pmx 300 1 gm In Dextrose/Water 1 100ml.bag @ 100 mls/hr IVPB Q1H [facility] Rx#: [id number] Piperacillin-Tazobactam 3 100 100 .375 gm In Sodium Chloride 0.9% 100 ml @ 25 mls/hr IVPB Q8H [facility] Rx#: [id number] Output: Drainage 140 Left Lower Abdomen 140 Emesis 30 Other: Voiding Method Toilet # Voids 1 - Exam Patient appears more comfortable today, nausea has resolved HEENT: Anicteric conjunctiva are pink and moist nasal mucosa grossly intact without significant lesions, there is no thrush. Neck: The neck is supple without significant lymphadenopathy or thyromegaly. Lungs: Good bilateral air entry without significant crackles or wheezing. There is no significant bronchial sounds. There is no egophony or dullness. Heart: Regular rate and rhythm with an audible S1-S2, no S3 no S4. There is no significant murmur click or rub, PMI was nondisplaced. Abdomen: Bowel sounds are positive, improvement in the tenderness right lower quadrant on deep exam but no guarding or rebound. No palpable mass or organomegaly. Extremities: The upper extremities have excellent pulses they are symmetric, no significant petechiae or telangiectasia. No splinter hemorrhages were noted. The lower extremities are free from significant edema. The peripheral pulses were 2+ and symmetric. Neuro: Awake alert oriented to person place and time. There are no acute new gross focal sensory motor deficits. - Labs CBC & Chem 7: 04/28/18 08:00 04/28/18 08:00 Labs: Abnormal Lab Results - Last 24 Hours (Table) 04/28/18 04/28/18 Range/Units 08:00 08:00 RBC 3.65 L (3.80-5.40) m/uL Hgb 11.2 L (11.4-16.0) gm/dL Hct 33.3 L (34.0-46.0) % Chloride 115 H (98-107) mmol/L Calcium 8.0 L (8.4-10.2) mg/dL Microbiology - Last 24 Hours (Table) 04/24/18 20:04 Blood Culture - Preliminary Blood No Growth after 96 hours 04/24/18 19:52 Blood Culture - Preliminary Blood No Growth after 96 hours 04/24/18 18:50 Anaerobic Culture - Final Appendix Anaerobic Gm Negative Bacilli Laboratory Results WBC 10.2 k/uL (3.8-10.6) 04/28/18 08:00 RBC 3.65 m/uL (3.80-5.40) L 04/28/18 08:00 Hgb 11.2 gm/dL (11.4-16.0) L 04/28/18 08:00 Hct 33.3 % (34.0-46.0) L 04/28/18 08:00 MCV 91.3 fL (80.0-100.0) 04/28/18 08:00 MCH 30.6 pg (25.0-35.0) 04/28/18 08:00 MCHC 33.5 g/dL (31.0-37.0) 04/28/18 08:00 RDW 12.8 % (11.5-15.5) 04/28/18 08:00 Plt Count 304 k/uL (150-450) 04/28/18 08:00 Neutrophils % 75 % 04/28/18 08:00 Lymphocytes % 14 % 04/28/18 08:00 Monocytes % 6 % 04/28/18 08:00 Eosinophils % 2 % 04/28/18 08:00 Basophils % 0 % 04/28/18 08:00 Neutrophils # 7.7 k/uL (1.3-7.7) 04/28/18 08:00 Lymphocytes # 1.5 k/uL (1.0-4.8) 04/28/18 08:00 Monocytes # 0.6 k/uL (0-1.0) 04/28/18 08:00 Eosinophils # 0.2 k/uL (0-0.7) 04/28/18 08:00 Basophils # 0.0 k/uL (0-0.2) 04/28/18 08:00 Sodium 140 mmol/L (137-145) 04/28/18 08:00 Potassium 4.1 mmol/L (3.5-5.1) 04/28/18 08:00 Chloride 115 mmol/L (98-107) H 04/28/18 08:00 Carbon Dioxide 22 mmol/L (22-30) 04/28/18 08:00 Anion Gap 3 mmol/L 04/28/18 08:00 BUN 17 mg/dL (7-17) 04/28/18 08:00 Creatinine 0.79 mg/dL (0.52-1.04) 04/28/18 08:00 Est GFR (CKD-EPI)AfAm >90 (>60 ml/min/1.73 sqM) 04/28/18 08:00 Est GFR (CKD-EPI)NonAf 88 (>60 ml/min/1.73 sqM) 04/28/18 08:00 Glucose 91 mg/dL (74-99) 04/28/18 08:00 Calcium 8.0 mg/dL (8.4-10.2) L 04/28/18 08:00 Magnesium 1.8 mg/dL (1.6-2.3) 04/25/18 07:20 Total Bilirubin 0.7 mg/dL (0.2-1.3) 04/23/18 15:21 AST 38 U/L (14-36) H 04/23/18 15:21 ALT 41 U/L (9-52) 04/23/18 15:21 Alkaline Phosphatase 102 U/L (38-126) 04/23/18 15:21 Total Protein 7.9 g/dL (6.3-8.2) 04/23/18 15:21 Albumin 4.3 g/dL (3.5-5.0) 04/23/18 15:21 Lipase 47 U/L (23-300) 04/23/18 15:21 Urine Color Yellow 04/25/18 02:45 Urine Appearance Cloudy (Clear) H 04/25/18 02:45 Urine pH 5.0 (5.0-8.0) 04/25/18 02:45 Ur Specific [place] 1.019 (1.001-1.035) 04/25/18 02:45 Urine Protein 1+ (Negative) H 04/25/18 02:45 Urine Glucose (UA) Negative (Negative) 04/25/18 02:45 Urine Ketones 2+ (Negative) H 04/25/18 02:45 Urine Blood Small (Negative) H 04/25/18 02:45 Urine Nitrite Negative (Negative) 04/25/18 02:45 Urine Bilirubin Negative (Negative) 04/25/18 02:45 Urine Urobilinogen <2.0 mg/dL (<2.0) 04/25/18 02:45 Ur Leukocyte Esterase Negative (Negative) 04/25/18 02:45 Urine RBC 9 /hpf (0-5) H 04/25/18 02:45 Urine WBC 8 /hpf (0-5) H 04/25/18 02:45 Ur Squamous Epith Cells 1 /hpf (0-4) 04/25/18 02:45 Uric Acid Crystals Occasional /hpf (None) H 04/25/18 02:45 Amorphous Sediment Rare /hpf (None) H 04/25/18 02:45 Urine Bacteria Occasional /hpf (None) H 04/25/18 02:45 Urine Mucus Rare /hpf (None) H 04/25/18 02:45 Microbiology 04/24/18 20:04 Blood Blood Culture - Preliminary No Growth after 96 hours 04/24/18 19:52 Blood Blood Culture - Preliminary No Growth after 96 hours 04/24/18 18:50 Appendix Anaerobic Culture - Final Anaerobic Gm Negative Bacilli 04/24/18 18:50 Appendix Gram Stain - Final 04/24/18 18:50 Appendix Wound Culture - Final Citrobacter braakii 04/25/18 02:45 Urine,Voided Urine Culture - Final Assessment and Plan (1) Acute appendicitis Narrative/Plan: 52 year old female presents to Hospital with a relatively short history of progressive abdominal pain that associated with the sudden increase of abdominal pain in the right lower quadrant associated with nausea generalized malaise and fever. She presented to the emergency room and there was evidence of an acute appendicitis and she was taken to the operating room where a nearly ruptured appendix was removed and lavage of the purulence in the right lower quadrant and evidence of peritonitis. Postoperatively she continues to have some nausea and emesis. Still feels poorly with fever and leukocytosis are trending to improvement. The patient does have a known history of prior bacterial vaginosis were she was treated with metronidazole with severe nausea constantly unconcerned at the current metronidazole could be causing the same problem. She is on piperacillin tazobactam and metronidazole is not needed as additional therapy in this situation and constantly has been discontinued.. Culture is pending gram-negative bacilli are seen which are usual pathogens in this situation. We'll add in some Tigan to see if this cannot help with her current nausea and near emesis. Pain control seems to be somewhat adequate at this point in time. We'll expect her leukocytosis to continue to improve as treatment of the appendicitis continues in her nausea resolves, nausea can cause leukocytosis. 04/27/2018 patient is now feeling considerably better with the removal of the metronidazole and resolution of her nausea. We'll expect a leukocytosis to start to improve with the current antibiotic therapy, rehydration, and resolution of her nausea. Surgery is following we'll work to improve her diet and anticipate discharge to home in about 48 hours will be able to direct antibiotic therapy close to discharge. 04/28/2018 reveals the patient to have further improvement of her status. Her nausea is completely resolved with the discontinuation of metronidazole. Doing well with current antibiotic therapy of Zosyn. Patient however is having difficulties with pain with the drain and hopefully this will be discontinued tomorrow. The patient will then transition to antibiotic therapy and moxifloxacin has been sent to her pharmacy to see if this is a covered benefit. Patient understands the importance of improving her nutrition especially protein intake and of using her incentive spirometer to prevent pneumonia. Current Visit: Yes Status: Acute Code(s): K35.80 - UNSPECIFIED ACUTE APPENDICITIS SNOMED Code(s): 47771049 (2) Peritonitis Current Visit: Yes Status: Acute Code(s): K65.9 - PERITONITIS, UNSPECIFIED SNOMED Code(s): 30504446 (3) Leukocytosis Current Visit: Yes Status: Acute Code(s): D72.829 - ELEVATED WHITE BLOOD CELL COUNT, UNSPECIFIED SNOMED Code(s): 216283365 (4) Nausea & vomiting Current Visit: Yes Status: Acute Code(s): R11.2 - NAUSEA WITH VOMITING, UNSPECIFIED SNOMED Code(s): 15059759
[2018-04-29] MEDS: KETOROLAC 30 MG/ML 1 ML VIAL IVP SCH ×3 (05:31→11:09)
[2018-04-29] MEDS: ONDANSETRON 4 MG/2 ML VIAL IVP SCH ×3 (05:32→14:18)
[2018-04-29] MEDS: PIPERACILLIN-TAZOBACTAM 3.375 GM in SODIUM CHLORIDE 0.9% 100 ML IVPB SCH ×2 (05:38→13:23)
[2018-04-29] MEDS: HYDROcodone/APAP 7.5-325MG 1 EACH TAB PO PRN ×2 (05:41→11:46)
[2018-04-29] MEDS: LEVOTHYROXINE 50 MCG TAB PO SCH (05:46)
[2018-04-29 08:28] LABS: Anion Gap 6 mmol/L; Blood Urea Nitrogen 14 mg/dL (7-17); Calcium 7.6 mg/dL (8.4-10.2); Carbon Dioxide 22 mmol/L (22-30); Chloride 109 mmol/L (98-107); Glucose 82 mg/dL (74-99); Magnesium 2.2 mg/dL (1.6-2.3); Potassium 3.7 mmol/L (3.5-5.1); Sodium 137 mmol/L (137-145)
[2018-04-29 08:39] LABS: HCT 37.9 % (34.0-46.0); HGB 12.3 gm/dL (11.4-16.0); MCH 29.5 pg (25.0-35.0); MCHC 32.3 g/dL (31.0-37.0); MCV 91.2 fL (80.0-100.0); Mean Platelet Volume 6.8; Platelet Count 338 k/uL (150-450); RBC 4.16 m/uL (3.80-5.40); RDW 12.8 % (11.5-15.5); WBC 12.1 k/uL (3.8-10.6)
[2018-04-29 08:57] VITALS: RESP 16
[2018-04-29] MEDS ORDERED: FLUCONAZOLE 150 MG TAB PO SCH (09:00)
[2018-04-29] MEDS: NICOTINE 14MG/24HR PATCH TRANSDERM SCH (10:03)
[2018-04-29] MEDS: PANTOPRAZOLE 40 MG/10 ML VIAL IV SCH (10:04)
[2018-04-29] MEDS: ENOXAPARIN 40 MG/0.4 ML SYRINGE SQ SCH (10:04)
[2018-04-29] MEDS: CHOLESTYRAMINE (WITH SUGAR) 4 GM PACKET PO SCH (10:05)
[2018-04-29 10:17] LABS: Eosinophils # (M) 0.36 k/uL (0-0.7); Lymphocytes # (M) 3.39 k/uL (1.0-4.8); Metamyelocytes # (M) 0.12 k/uL (0); Metamyelocytes % 1 %; Monocytes # (M) 0.85 k/uL (0-1.0); Neutrophils # (M) 7.62 k/uL (1.3-7.7); Neutrophils % (M) 63 %; Nucleated Red Blood Cells 0 /100 WBC (0-0); Total Cells Counted 200
[2018-04-29 10:20] LABS: Toxic Granulation Present
--- NOTE | 2018-04-29 14:30 | P.DS ---
<Carla Awan - Last Filed: 04/29/18 14:27> Providers Date of admission: 04/24/18 19:08 Expected date of discharge: 04/29/18 Attending physician: Daksha Canchola Consults: 04/26/18 12:15 Consult Physician Urgent Consulting Provider: Jameson Beltran Consult Reason/Comments: Peritonitis with appendicitis, antibiotic management Do you want consulting provider notified?: Yes 04/26/18 13:37 Consult Physician Urgent Consulting Provider: Meredith Doran Consult Reason/Comments: Medical management Do you want consulting provider notified?: Already Contacted Primary care physician: Maria Luisa Callejas - Discharge Diagnosis(es) (1) Obesity (BMI 30-39.9) Status: Acute (2) Nicotine dependence Status: Acute (3) Acute appendicitis Status: Acute (4) Appendicitis Status: Acute (5) Peritonitis Status: Acute Hospital Course: 52-year-old female who presented to the ER with abdominal pain. Patient underwent appendectomy secondary to gangrenous necrotizing appendicitis. She was evaluated by infectious disease during hospitalization. Moxifloxacin was prescribed at discharge per ID. On the day of discharge, patient is tolerating PO intake. Denies nausea or vomiting. Passing flatus and having BMs. GERTRUDE drain was discontinued. She is to follow up with Dr. Canchola and her primary care physician. Please see EMR for further details regarding hospital course. Discharge Diagnosis: Gangrenous necrotizing appendicitis, status post appendectomy Sepsis, secondary to above Peritonitis Obesity BMI 36.0 Nicotine dependence Nurse practitioner note has been reviewed by physician. Signing provider agrees with the documented findings, assessment, and plan of care. Patient Condition at Discharge: Stable Plan - Discharge Summary Discharge Rx Participant: No New Discharge Prescriptions: New Moxifloxacin HCl 400 mg PO DAILY #10 tab Fluconazole [Diflucan] 150 mg PO Q72H PRN #3 tab PRN Reason: vaginal itching HYDROcodone/APAP 7.5-325MG [[place] 7.5-325] 1 each PO Q6H PRN #12 tab PRN Reason: Pain Continue Levothyroxine Sodium [Synthroid] 50 mcg PO DAILY Discharge Medication List Levothyroxine Sodium [Synthroid] 50 mcg PO DAILY 04/23/18 [History] Moxifloxacin HCl 400 mg PO DAILY #10 tab 04/28/18 [Rx] Fluconazole [Diflucan] 150 mg PO Q72H PRN #3 tab 04/29/18 [Rx] HYDROcodone/APAP 7.5-325MG [[place] 7.5-325] 1 each PO Q6H PRN #12 tab 04/29/18 [ Rx] Follow up Appointment(s)/Referral(s): Jameson Beltran MD [STAFF PHYSICIAN] - As Needed Daksha Canchola MD [STAFF PHYSICIAN] - 1 Week (MAY 14 2:20pm) Maria Luisa Callejas DO [Primary Care Provider] - 3 Days (SATURDAY AT 2:00PM) Patient Instructions/Handouts: Laparoscopic Appendectomy (DC) Activity/Diet/Wound Care/Special Instructions: Dressing to left lower quadrant: Keep on until . You may shower on . No tub baths If dressing becomes saturated, you may use feminine pads to absorb drainage No lifting over 10 pounds No driving while taking Narcotics Discharge Disposition: HOME SELF-CARE <Daksha Canchola - Last Filed: 04/30/18 12:37> - Discharge Diagnosis(es) (1) Acute appendicitis Status: Acute (2) Sepsis Status: Acute (3) Acute appendicitis with generalized peritonitis and gangrene Status: Acute (4) Obesity (BMI 30-39.9) Status: Acute (5) Peritonitis Status: Acute
[2018-04-29 15:25] VITALS: BP 122/85; PULSE 91; TEMP 98
--- NOTE | 2018-04-29 23:24 | P.PN ---
Subjective Progress Note Date: 04/29/18 Progress note being dictated for Dr. Doran. Interval history: This a 52-year-old female admitted with acute gangrenous appendicitis, peritonitis and multiple other medical issues. Cultures growing Citrobacter brachii. Maintained on IV antibiotics of Zosyn as per infectious disease. Pain controlled. Complains of ongoing diarrhea. Ambulated in the hallway, tolerating exertion well. Incentive spirometer up to 1500. Afebrile, normal WBC. Fair diet intake, consuming 25% of a regular diet. Denies chest pain, palpitations or increasing shortness of breath. 04/29/2018 Maintained on IV antibiotics as per infectious disease. Ambulating tolerating exertion well. Diet intake improving with no nausea, vomiting. Positive bowel movement. No further diarrhea. Denies chest pain, palpitations or increasing shortness of breath. Objective - Vital Signs Vital signs: Vital Signs Temp 97.7 F 04/29/18 12:00 Pulse 81 04/29/18 12:00 Resp 16 04/29/18 12:00 BP 120/77 04/29/18 12:00 Pulse Ox 94 L 04/29/18 12:00 Intake & Output 04/28/18 04/29/18 04/29/18 18:59 06:59 18:59 Intake Total 400 Output Total 140 28 Balance -140 400 -28 Intake: Intake, IV Titration 400 Amount Magnesium Sulfate-D5w Pmx 300 1 gm In Dextrose/Water 1 100ml.bag @ 100 mls/hr IVPB Q1H [facility] Rx#: [id number] Piperacillin-Tazobactam 3 100 .375 gm In Sodium Chloride 0.9% 100 ml @ 25 mls/hr IVPB Q8H [facility] Rx#: [id number] Output: Drainage 140 28 Left Lower Abdomen 140 28 Other: # Voids 1 2 - Exam PHYSICAL EXAM: VITAL SIGNS: As above GENERAL: Sitting up in bed, no acute distress HEENT: Conjunctivae normal. eyes normal. Oral mucosa moist NECK: No JVD. No thyroid enlargement. CARDIOVASCULAR: S1, S2 muffled. No murmur RESPIRATION: Breath sounds diminished in the bases. No rhonchi or crackles. ABDOMEN: Soft, status post surgery positive bowel sounds . LEGS: No edema. no swelling PSYCHIATRY: Alert and oriented -3, mood and affect normal. NERVOUS SYSTEM: Cranial N 2-12 grossly normal. Moves all 4 limbs. Diffuse weakness No focal deficits. Skin: no rash Microbiology 04/24/18 19:52 Blood Blood Culture - Preliminary No Growth after 120 hours 04/24/18 20:04 Blood Blood Culture - Preliminary No Growth after 120 hours 04/24/18 18:50 Appendix Anaerobic Culture - Final Anaerobic Gm Negative Bacilli 04/24/18 18:50 Appendix Gram Stain - Final 04/24/18 18:50 Appendix Wound Culture - Final Citrobacter braakii 04/25/18 02:45 Urine,Voided Urine Culture - Final - Labs CBC & Chem 7: 04/29/18 06:42 04/29/18 06:42 Labs: Abnormal Lab Results - Last 24 Hours (Table) 04/29/18 04/29/18 Range/Units 06:42 06:42 WBC 12.1 H (3.8-10.6) k/uL Metamyelocytes # (Man) 0.12 H (0) k/uL Chloride 109 H (98-107) mmol/L Calcium 7.6 L (8.4-10.2) mg/dL Microbiology - Last 24 Hours (Table) 04/24/18 20:04 Blood Culture - Preliminary Blood No Growth after 96 hours 04/24/18 19:52 Blood Culture - Preliminary Blood No Growth after 96 hours Assessment and Plan Assessment: -Acute gangrenous appendicitis causing peritonitis. Cultures growing Citrobacter brachii -Sepsis secondary to the above -Diarrhea, rule out C. diff -Normocytic anemia, probably acute blood loss expected from surgery, improving -Chronic nicotine dependence -Obesity, BMI 36 -Chronic irritable bowel syndrome -Hypothyroid Plan: Continue on current medication regime ,monitoring and symptomatic treatment. Maintained on IV antibiotics as per infectious disease. Smoking cessation readdressed. Aggressive pulmonary toileting with incentive spirometer reinforced .follow-up with PCP in 1 week .Thank you for allowing us to participate in the care of this pleasant patient. The impression and plan of care has been dictated as directed. : I performed a history and examination of this patient, discussed the same with the dictator. I agree with the dictator's note ,documented as a scribe. Any additional findings or plans will be noted.
--- NOTE | 2018-04-29 23:59 | P.PN ---
Subjective Progress Note Date: 04/29/18 Pleasant 52-year-old female presents to Hospital with a approximate 2 day history of some abdominal discomforts that started. Umbilical and then developed into the right lower quadrant. The patient relates she had the rapid increase of discomfort and her brought her to the emergency center because of her rapid change of status. She will be she had a fever but no chills or rigors. She felt very poorly had nausea without much emesis and did not have significant hematemesis melena or hematochezia. Upon evaluation in the emergency center there is evidence of acute appendicitis by the computed tomography scan and consequently was admitted and surgical consult occurred. Given her symptoms she was taken to the operating room where a nearly ruptured appendix was found with evidence of purulence in the right lower quadrant. Appendectomy and lavage occurred, the patient continues to feel poorly with ongoing nausea and near emesis. Fortunately her fever is improved and leukocytosis also improving. However she still feels quite poorly and a consult was requested. She relates this is the worst she has felt in her whole life including when she had section. 04/27/2018 patient is now feeling considerably better. He is ingesting her clear liquid tray without significant nausea or emesis. The nausea is resolved. Abdominal pains improving. No fevers or chills. Ongoing improvement noted in the last day. 04/28/2018 patient continues to feel better but is having significant pain related to the drain that is in the right lower quadrant. Her nausea is resolved. She's eating food relatively well without nausea or emesis. Her abdominal pain she's doing well. Is having difficulty changing positions from bed to chair. The tolerates her incentive spirometer well. Denies fevers or chills 04/29/2018 patient deftly doing better. Treatment will be removed and likely discharged home afterwards. Abdominal pains improved eating somewhat better denying fevers chills rigors or sweats. Objective - Vital Signs Vital signs: Vital Signs Temp 98 F 04/29/18 15:14 Pulse 91 04/29/18 15:14 Resp 16 04/29/18 15:14 BP 122/85 04/29/18 15:14 Pulse Ox 94 L 04/29/18 15:14 Intake & Output 04/29/18 04/29/18 04/30/18 06:59 18:59 06:59 Intake Total 400 390 Output Total 28 Balance 400 362 Intake: Intake, IV Titration 400 Amount Magnesium Sulfate-D5w Pmx 300 1 gm In Dextrose/Water 1 100ml.bag @ 100 mls/hr IVPB Q1H [facility] Rx#: [id number] Piperacillin-Tazobactam 3 100 .375 gm In Sodium Chloride 0.9% 100 ml @ 25 mls/hr IVPB Q8H [facility] Rx#: [id number] Oral 390 Output: Drainage 28 Left Lower Abdomen 28 Other: # Voids 2 - Exam Patient appears more comfortable today, nausea has resolved HEENT: Anicteric conjunctiva are pink and moist nasal mucosa grossly intact without significant lesions, there is no thrush. Neck: The neck is supple without significant lymphadenopathy or thyromegaly. Lungs: Good bilateral air entry without significant crackles or wheezing. There is no significant bronchial sounds. There is no egophony or dullness. Heart: Regular rate and rhythm with an audible S1-S2, no S3 no S4. There is no significant murmur click or rub, PMI was nondisplaced. Abdomen: Bowel sounds are positive, improvement in the tenderness right lower quadrant on deep exam but no guarding or rebound. No palpable mass or organomegaly. Extremities: The upper extremities have excellent pulses they are symmetric, no significant petechiae or telangiectasia. No splinter hemorrhages were noted. The lower extremities are free from significant edema. The peripheral pulses were 2+ and symmetric. Neuro: Awake alert oriented to person place and time. There are no acute new gross focal sensory motor deficits. - Labs CBC & Chem 7: 04/29/18 06:42 04/29/18 06:42 Labs: Abnormal Lab Results - Last 24 Hours (Table) 04/29/18 04/29/18 Range/Units 06:42 06:42 WBC 12.1 H (3.8-10.6) k/uL Metamyelocytes # (Man) 0.12 H (0) k/uL Chloride 109 H (98-107) mmol/L Calcium 7.6 L (8.4-10.2) mg/dL Microbiology - Last 24 Hours (Table) 04/24/18 19:52 Blood Culture - Preliminary Blood No Growth after 120 hours 04/24/18 20:04 Blood Culture - Preliminary Blood No Growth after 120 hours Laboratory Results WBC 12.1 k/uL (3.8-10.6) H 04/29/18 06:42 RBC 4.16 m/uL (3.80-5.40) 04/29/18 06:42 Hgb 12.3 gm/dL (11.4-16.0) 04/29/18 06:42 Hct 37.9 % (34.0-46.0) 04/29/18 06:42 MCV 91.2 fL (80.0-100.0) 04/29/18 06:42 MCH 29.5 pg (25.0-35.0) 04/29/18 06:42 MCHC 32.3 g/dL (31.0-37.0) 04/29/18 06:42 RDW 12.8 % (11.5-15.5) 04/29/18 06:42 Plt Count 338 k/uL (150-450) 04/29/18 06:42 Neutrophils % 75 % 04/28/18 08:00 Neutrophils % (Manual) 63 % 04/29/18 06:42 Lymphocytes % 14 % 04/28/18 08:00 Lymphocytes % (Manual) 28 % 04/29/18 06:42 Monocytes % 6 % 04/28/18 08:00 Monocytes % (Manual) 7 % 04/29/18 06:42 Eosinophils % 2 % 04/28/18 08:00 Eosinophils % (Manual) 3 % 04/29/18 06:42 Basophils % 0 % 04/28/18 08:00 Metamyelocytes % 1 % 04/29/18 06:42 Neutrophils # 7.7 k/uL (1.3-7.7) 04/28/18 08:00 Neutrophils # (Manual) 7.62 k/uL (1.3-7.7) 04/29/18 06:42 Lymphocytes # 1.5 k/uL (1.0-4.8) 04/28/18 08:00 Lymphocytes # (Manual) 3.39 k/uL (1.0-4.8) 04/29/18 06:42 Monocytes # 0.6 k/uL (0-1.0) 04/28/18 08:00 Monocytes # (Manual) 0.85 k/uL (0-1.0) 04/29/18 06:42 Eosinophils # 0.2 k/uL (0-0.7) 04/28/18 08:00 Eosinophils # (Manual) 0.36 k/uL (0-0.7) 04/29/18 06:42 Basophils # 0.0 k/uL (0-0.2) 04/28/18 08:00 Metamyelocytes # (Man) 0.12 k/uL (0) H 04/29/18 06:42 Nucleated RBCs 0 /100 WBC (0-0) 04/29/18 06:42 Manual Slide Review Performed 04/29/18 06:42 Toxic Granulation Present 04/29/18 06:42 Sodium 137 mmol/L (137-145) 04/29/18 06:42 Potassium 3.7 mmol/L (3.5-5.1) 04/29/18 06:42 Chloride 109 mmol/L (98-107) H 04/29/18 06:42 Carbon Dioxide 22 mmol/L (22-30) 04/29/18 06:42 Anion Gap 6 mmol/L 04/29/18 06:42 BUN 14 mg/dL (7-17) 04/29/18 06:42 Creatinine 0.60 mg/dL (0.52-1.04) 04/29/18 06:42 Est GFR (CKD-EPI)AfAm >90 (>60 ml/min/1.73 sqM) 04/29/18 06:42 Est GFR (CKD-EPI)NonAf >90 (>60 ml/min/1.73 sqM) 04/29/18 06:42 Glucose 82 mg/dL (74-99) 04/29/18 06:42 Calcium 7.6 mg/dL (8.4-10.2) L 04/29/18 06:42 Magnesium 2.2 mg/dL (1.6-2.3) 04/29/18 06:42 Total Bilirubin 0.7 mg/dL (0.2-1.3) 04/23/18 15:21 AST 38 U/L (14-36) H 04/23/18 15:21 ALT 41 U/L (9-52) 04/23/18 15:21 Alkaline Phosphatase 102 U/L (38-126) 04/23/18 15:21 Total Protein 7.9 g/dL (6.3-8.2) 04/23/18 15:21 Albumin 4.3 g/dL (3.5-5.0) 04/23/18 15:21 Lipase 47 U/L (23-300) 04/23/18 15:21 Urine Color Yellow 04/25/18 02:45 Urine Appearance Cloudy (Clear) H 04/25/18 02:45 Urine pH 5.0 (5.0-8.0) 04/25/18 02:45 Ur Specific [place] 1.019 (1.001-1.035) 04/25/18 02:45 Urine Protein 1+ (Negative) H 04/25/18 02:45 Urine Glucose (UA) Negative (Negative) 04/25/18 02:45 Urine Ketones 2+ (Negative) H 04/25/18 02:45 Urine Blood Small (Negative) H 04/25/18 02:45 Urine Nitrite Negative (Negative) 04/25/18 02:45 Urine Bilirubin Negative (Negative) 04/25/18 02:45 Urine Urobilinogen <2.0 mg/dL (<2.0) 04/25/18 02:45 Ur Leukocyte Esterase Negative (Negative) 04/25/18 02:45 Urine RBC 9 /hpf (0-5) H 04/25/18 02:45 Urine WBC 8 /hpf (0-5) H 04/25/18 02:45 Ur Squamous Epith Cells 1 /hpf (0-4) 04/25/18 02:45 Uric Acid Crystals Occasional /hpf (None) H 04/25/18 02:45 Amorphous Sediment Rare /hpf (None) H 04/25/18 02:45 Urine Bacteria Occasional /hpf (None) H 04/25/18 02:45 Urine Mucus Rare /hpf (None) H 04/25/18 02:45 Microbiology 04/24/18 19:52 Blood Blood Culture - Preliminary No Growth after 120 hours 04/24/18 20:04 Blood Blood Culture - Preliminary No Growth after 120 hours 04/24/18 18:50 Appendix Anaerobic Culture - Final Anaerobic Gm Negative Bacilli 04/24/18 18:50 Appendix Gram Stain - Final 04/24/18 18:50 Appendix Wound Culture - Final Citrobacter braakii 04/25/18 02:45 Urine,Voided Urine Culture - Final Assessment and Plan (1) Acute appendicitis Narrative/Plan: 52 year old female presents to Hospital with a relatively short history of progressive abdominal pain that associated with the sudden increase of abdominal pain in the right lower quadrant associated with nausea generalized malaise and fever. She presented to the emergency room and there was evidence of an acute appendicitis and she was taken to the operating room where a nearly ruptured appendix was removed and lavage of the purulence in the right lower quadrant and evidence of peritonitis. Postoperatively she continues to have some nausea and emesis. Still feels poorly with fever and leukocytosis are trending to improvement. The patient does have a known history of prior bacterial vaginosis were she was treated with metronidazole with severe nausea constantly unconcerned at the current metronidazole could be causing the same problem. She is on piperacillin tazobactam and metronidazole is not needed as additional therapy in this situation and constantly has been discontinued.. Culture is pending gram-negative bacilli are seen which are usual pathogens in this situation. We'll add in some Tigan to see if this cannot help with her current nausea and near emesis. Pain control seems to be somewhat adequate at this point in time. We'll expect her leukocytosis to continue to improve as treatment of the appendicitis continues in her nausea resolves, nausea can cause leukocytosis. 04/27/2018 patient is now feeling considerably better with the removal of the metronidazole and resolution of her nausea. We'll expect a leukocytosis to start to improve with the current antibiotic therapy, rehydration, and resolution of her nausea. Surgery is following we'll work to improve her diet and anticipate discharge to home in about 48 hours will be able to direct antibiotic therapy close to discharge. 04/28/2018 reveals the patient to have further improvement of her status. Her nausea is completely resolved with the discontinuation of metronidazole. Doing well with current antibiotic therapy of Zosyn. Patient however is having difficulties with pain with the drain and hopefully this will be discontinued tomorrow. The patient will then transition to antibiotic therapy and moxifloxacin has been sent to her pharmacy to see if this is a covered benefit. Patient understands the importance of improving her nutrition especially protein intake and of using her incentive spirometer to prevent pneumonia. 04/29/2018 patient now shows evidence of improvement of her status and that her pain is improving, she is having no fevers or chills. She is advanced her diet without great difficulties. Still having pain from the percutaneous drain but that will be removed soon and likely discharged home. As noted she will not receive further metronidazole given the significant and severe nausea. Antibiotic was sent to her pharmacy and appears to have been covered by her insurance. Continue with improvement of her protein status and use of incentive spirometer to prevent pneumonia. Discharge home later today. Follow- up with the surgeon which may be directed to care in the office if there is further need. Status: Acute Code(s): K35.80 - UNSPECIFIED ACUTE APPENDICITIS SNOMED Code(s ): 28013480 (2) Peritonitis Status: Acute Code(s): K65.9 - PERITONITIS, UNSPECIFIED SNOMED Code(s): 41661510 (3) Leukocytosis Status: Acute Code(s): D72.829 - ELEVATED WHITE BLOOD CELL COUNT, UNSPECIFIED SNOMED Code(s): 924739214 (4) Nausea & vomiting Status: Acute Code(s): R11.2 - NAUSEA WITH VOMITING, UNSPECIFIED SNOMED Code (s): 71180100
== END 2018-04-29 16:23 | disposition home or self-care (01) | DRG 853 ==
LOC: EC 13:28 → 4SSUR 18:03 → 1SOBS 19:37 → OBSVTOIN 04-24 19:08 → 4SSUR 04-24 19:31 → 6PED 04-29 10:32
PROVIDERS: ADMIT Surgery Plastic and Reconstructive Surgery; ATTEND Surgery Plastic and Reconstructive Surgery
PROC: 8E0W4CZ Robotic Assisted Procedure of Trunk Region, Percutaneous Endoscopic Approach (ICD-10-PCS; 2018-04-24)
PROC: 0W9G40Z Drainage of Peritoneal Cavity with Drainage Device, Percutaneous Endoscopic Approach (ICD-10-PCS; 2018-04-24)
PROC: 3E1M38Z Irrigation of Peritoneal Cavity using Irrigating Substance, Percutaneous Approach (ICD-10-PCS; 2018-04-24)
PROC: 0DTJ4ZZ Resection of Appendix, Percutaneous Endoscopic Approach (ICD-10-PCS; principal; 2018-04-24 07:30)
DX: A41.9 Sepsis, unspecified organism (principal); K35.33 Acute appendicitis with perforation, localized peritonitis, and gangrene, with abscess; D62 Acute posthemorrhagic anemia; R11.2 Nausea with vomiting, unspecified; T40.605A Adverse effect of unspecified narcotics, initial encounter; E03.9 Hypothyroidism, unspecified; E66.9 Obesity, unspecified; F17.210 Nicotine dependence, cigarettes, uncomplicated; Z71.6 Tobacco abuse counseling; K38.1 Appendicular concretions; K58.9 Irritable bowel syndrome, unspecified; Z68.36 Body mass index [BMI] 36.0-36.9, adult; Z79.890 Hormone replacement therapy; Z82.49 Family history of ischemic heart disease and other diseases of the circulatory system; Z90.49 Acquired absence of other specified parts of digestive tract; Z87.440 Personal history of urinary (tract) infections; Z88.8 Allergy status to other drugs, medicaments and biological substances; Z80.42 Family history of malignant neoplasm of prostate; Z81.8 Family history of other mental and behavioral disorders; E66.09 Other obesity due to excess calories
CPT/HCPCS: 36415; 74177; 80048; 80053; 81001; 81003; 83690; 83735; 85025; 87040; 87070; 87075; 87077; 87086; 87186; 87205; 88304; 96365; 96367; 96375; 96376; 99285

== ENCOUNTER → 2018-08-11 | Outpatient (CLI) | payer OTHER ==
--- NOTE | 2018-08-13 11:41 | MM ---
Reason for exam: screening (asymptomatic). Last mammogram was performed 1 year and 6 months ago. History: Patient is postmenopausal. Benign cyst aspiration of the right breast, 1984. Physical Findings: A clinical breast exam by your physician is recommended on an annual basis and results should be correlated with mammographic findings. MG Screening Mammo w CAD Bilateral CC and MLO view(s) were taken. Prior study comparison: February 20, 2017, bilateral MG screening mammo w CAD. December 16, 2015, bilateral MG screening mammo w CAD. The breast tissue is heterogeneously dense. This may lower the sensitivity of mammography. No significant changes when compared with prior studies. ASSESSMENT: Negative, BI-RAD 1 RECOMMENDATION: Routine screening mammogram of both breasts in 1 year.
== END | disposition home or self-care (01) ==
LOC: RADMAMWWP 07:49
PROVIDERS: ATTEND Family Medicine
DX: Z12.31 Encounter for screening mammogram for malignant neoplasm of breast (principal)
CPT/HCPCS: 77067

== ENCOUNTER → 2019-10-23 | Outpatient (CLI) | payer OTHER ==
--- NOTE | 2019-10-26 08:50 | MM ---
Reason for exam: screening (asymptomatic). Last mammogram was performed 1 year and 2 months ago. History: Patient is postmenopausal. Benign cyst aspiration of the right breast, 1984. Physical Findings: A clinical breast exam by your physician is recommended on an annual basis and results should be correlated with mammographic findings. MG Screening Mammo w CAD Bilateral CC and MLO view(s) were taken. Prior study comparison: August 11, 2018, bilateral MG screening mammo w CAD. February 20, 2017, bilateral MG screening mammo w CAD. The breast tissue is heterogeneously dense. This may lower the sensitivity of mammography. Focal asymmetry central upper left breast 10cm from nipple. ASSESSMENT: Incomplete: need additional imaging evaluation, BI-RAD 0 RECOMMENDATION: Special view mammogram of the left breast. If lesion persists on supplemental views, image directed ultrasound is recommended. [facility] will attempt to contact patient to return for supplemental views and ultrasound if indicated.
== END | disposition home or self-care (01) ==
LOC: RADMAMWWP 07:10
PROVIDERS: ATTEND Family Medicine
DX: Z12.31 Encounter for screening mammogram for malignant neoplasm of breast (principal)
CPT/HCPCS: 77067

== ENCOUNTER → 2019-10-28 | Outpatient (CLI) | payer OTHER ==
--- NOTE | 2019-10-28 08:30 | MM ---
Reason for exam: additional evaluation requested from abnormal screening. Last mammogram was performed less than 1 month ago. History: Patient is postmenopausal. Benign cyst aspiration of the right breast, 1984. Physical Findings: Nurse did not find any significant physical abnormalities on exam. MG Work Up Mamm w CAD LT Spot compression CC, spot compression MLO, and LM view(s) were taken of the left breast. Prior study comparison: October 23, 2019, bilateral MG screening mammo w CAD. August 11, 2018, bilateral MG screening mammo w CAD. The breast tissue is heterogeneously dense. This may lower the sensitivity of mammography. There is no discrete abnormality including area of concern. These results were verbally communicated with the patient and result sheet given to the patient on 10/28/19. ASSESSMENT: Negative, BI-RAD 1 RECOMMENDATION: Return to routine screening mammogram schedule for both breasts.
== END | disposition home or self-care (01) ==
LOC: RADMAMWWP 07:42
PROVIDERS: ATTEND Family Medicine
DX: R92.8 Other abnormal and inconclusive findings on diagnostic imaging of breast (principal)
CPT/HCPCS: 77065

== ENCOUNTER → 2020-12-13 | Outpatient (CLI) | payer OTHER ==
--- NOTE | 2020-12-14 13:49 | MM ---
Reason for exam: screening (asymptomatic). Last mammogram was performed 1 year and 2 months ago. History: Patient is postmenopausal. Benign cyst aspiration of the right breast, 1984. Physical Findings: A clinical breast exam by your physician is recommended on an annual basis and results should be correlated with mammographic findings. MG Screening Mammo w CAD Bilateral CC and MLO view(s) were taken. Prior study comparison: October 28, 2019, left breast MG work up mamm w CAD LT. October 23, 2019, bilateral MG screening mammo w CAD. The breast tissue is heterogeneously dense. This may lower the sensitivity of mammography. There is no discrete abnormality. No significant changes when compared with prior studies. ASSESSMENT: Negative, BI-RAD 1 RECOMMENDATION: Routine screening mammogram of both breasts in 1 year.
== END | disposition home or self-care (01) ==
LOC: RADMAMWWP 07:38
PROVIDERS: ATTEND Family Medicine
DX: Z12.31 Encounter for screening mammogram for malignant neoplasm of breast (principal)
CPT/HCPCS: 77067

== ENCOUNTER → 2022-04-17 | Outpatient (CLI) | payer OTHER ==
--- NOTE | 2022-04-17 09:20 | MM ---
Reason for Exam: Clinical finding. Last mammogram was performed 1 year(s) and 5 month(s) ago. Indicated Problems: Palpable abnormality of the left side (size 20) for 1 Month(s). Patient History: Menarche at age 14. First Full-Term at age 24. Postmenopausal. Patient has history of breast feeding. 1984, Benign Excisional Biopsy on the left side. 1984, Benign Cyst Aspiration on the right side. Risk Values: Falguni 5 year model risk: 1.2%. NCI Lifetime model risk: 8.8%. Prior Study Comparison: 10/23/2019 Bilateral Screening Mammogram, [facility]. 10/28/2019 Left Diagnostic Mammogram, [facility]. 12/13/2020 Bilateral Screening Mammogram, [facility]. Tissue Density: The breast tissue is heterogeneously dense. This may lower the sensitivity of mammography. Findings: Analyzed By CAD. A few tiny benign-appearing round calcifications bilaterally are redemonstrated. Palpable abnormality inferior medial left breast marked by triangle. No obvious mass at this level identified. Overall Assessment: Incomplete: need additional imaging evaluation, BI-RAD 0 Management: Diagnostic Breast Ultrasound of the left breast. Targeted ultrasound left breast due to palpable. Electronically signed and approved by: Adam Gonzalez M.D.
--- NOTE | 2022-04-17 09:47 | USB ---
Reason for Exam: Clinical finding. Patient History: Menarche at age 14. First Full-Term at age 24. Postmenopausal. Patient has history of breast feeding. 1984, Benign Excisional Biopsy on the left side. 1984, Benign Cyst Aspiration on the right side. Risk Values: Falguni 5 year model risk: 1.2%. NCI Lifetime model risk: 8.8%. Technique: Method: Targeted. Prior Study Comparison: 10/23/2019 Bilateral Screening Mammogram, [facility]. 10/28/2019 Left Diagnostic Mammogram, [facility]. 12/13/2020 Bilateral Screening Mammogram, [facility]. Findings: The lower section of the breast of the left breast was scanned. Targeted ultrasound palpable abnormality shows no worrisome solid or cystic mass or fluid collection. Overall Assessment: Negative, BI-RAD 1 Management: Screening Mammogram of both breasts in 1 year. Managed palpable on clinical basis. Return to routine follow-up. Results were given to the patient verbally at the time of exam. Electronically signed and approved by: Adam Gonzalez M.D.
== END | disposition home or self-care (01) ==
LOC: RADMAMWWP 08:46
PROVIDERS: ATTEND Family Medicine
DX: N63.10 Unspecified lump in the right breast, unspecified quadrant (principal); N63.20 Unspecified lump in the left breast, unspecified quadrant; Z78.0 Asymptomatic menopausal state
CPT/HCPCS: 77066

== ENCOUNTER → 2023-05-10 | Outpatient (CLI) | payer OTHER ==
--- NOTE | 2023-05-13 08:48 | MM ---
Reason for Exam: Screening (asymptomatic). Last mammogram was performed 2 year(s) and 5 month(s) ago. Patient History: Menarche at age 14. First Full-Term at age 24. Postmenopausal. Patient has history of breast feeding. 1984, Benign Excisional Biopsy on the left side. 1984, Benign Cyst Aspiration on the right side. Risk Values: Falguni 5 year model risk: 1.2%. NCI Lifetime model risk: 8.7%. Prior Study Comparison: 10/28/2019 Left Diagnostic Mammogram, [facility]. 12/13/2020 Bilateral Screening Mammogram, [facility]. 04/17/2022 Bilateral MG diagnostic mammo w CAD [facility], [facility]. Tissue Density: There are scattered fibroglandular densities. Findings: Analyzed By CAD. Asymmetric density seen best on the left MLO view 11 cm from the nipple. Additional views are recommended. Overall Assessment: Incomplete: need additional imaging evaluation, BI-RAD 0 Management: Diagnostic Mammogram of the left breast. . Patient should continue monthly self-breast exams. A clinical breast exam by your physician is recommended on an annual basis. This exam should not preclude additional follow-up of suspicious palpable abnormalities. Note on Falguni scores and lifetime risk: 1. A Falguni score greater than 3% is considered moderate risk. If this is the case, consider specialist referral to assess eligibility for a risk reducing agent. 2. If overall lifetime risk for the development of breast cancer is 20% or higher, the patient may qualify for future screening with alternating mammogram and breast MRI. Electronically signed and approved by: Tony Beebe M.D. Radiologis
== END | disposition home or self-care (01) ==
LOC: RADMAMWWP 08:03
PROVIDERS: ATTEND Family Medicine
DX: Z12.31 Encounter for screening mammogram for malignant neoplasm of breast (principal); Z78.0 Asymptomatic menopausal state
CPT/HCPCS: 77067

== ENCOUNTER → 2023-05-15 | Outpatient (CLI) | payer OTHER ==
--- NOTE | 2023-05-15 13:38 | MM ---
Reason for Exam: Additional evaluation requested from abnormal screening. Last screening mammogram was performed less than 1 month ago. Patient History: Menarche at age 14. First Full-Term at age 24. Postmenopausal. Patient has history of breast feeding. 1984, Benign Excisional Biopsy on the left side. 1984, Benign Cyst Aspiration on the right side. Risk Values: Falguni 5 year model risk: 1.2%. NCI Lifetime model risk: 8.7%. Prior Study Comparison: 12/13/2020 Bilateral Screening Mammogram, [facility]. 04/17/2022 Bilateral MG diagnostic mammo w CAD [facility], [facility]. 05/10/2023 Bilateral MG screening mammo w CAD, [facility]. Tissue Density: Left: The breast tissue is heterogeneously dense. This may lower the sensitivity of mammography. Findings: Analyzed By CAD. Asymmetric density left breast is improved upon spot compression imaging. Precautionary six-month follow-up is recommended. Overall Assessment: Probably benign, BI-RAD 3 Management: Diagnostic Mammogram of the left breast in 6 months. . Results were given to the patient verbally at the time of exam. Patient should continue monthly self-breast exams. A clinical breast exam by your physician is recommended on an annual basis. This exam should not preclude additional follow-up of suspicious palpable abnormalities. Note on Falguni scores and lifetime risk: 1. A Falguni score greater than 3% is considered moderate risk. If this is the case, consider specialist referral to assess eligibility for a risk reducing agent. 2. If overall lifetime risk for the development of breast cancer is 20% or higher, the patient may qualify for future screening with alternating mammogram and breast MRI. Electronically signed and approved by: Tony Beebe M.D. Radiologis
== END | disposition home or self-care (01) ==
LOC: RADMAMWWP 13:08
PROVIDERS: ATTEND Family Medicine
DX: R92.332 Mammographic heterogeneous density, left breast (principal); Z78.0 Asymptomatic menopausal state
CPT/HCPCS: 77061; 77065

== ENCOUNTER → 2023-12-17 | Outpatient (CLI) | payer OTHER ==
--- NOTE | 2023-12-17 10:26 | MM ---
Reason for Exam: Follow-up at short interval from prior study. Last screening mammogram was performed 8 month(s) ago. Patient History: Menarche at age 14. First Full-Term at age 24. Postmenopausal. Patient has history of breast feeding. 1984, Benign Excisional Biopsy on the left side. 1984, Benign Cyst Aspiration on the right side. Risk Values: Falguni 5 year model risk: 1.3%. NCI Lifetime model risk: 8.5%. Prior Study Comparison: 04/17/2022 Bilateral MG diagnostic mammo w CAD [facility], [facility]. 05/10/2023 Bilateral MG screening mammo w CAD, [facility]. 05/15/2023 Left MG 3D work up w/cad , [facility]. Tissue Density: Left: The breasts are heterogeneously dense, which may obscure small masses. Findings: Analyzed By CAD. Area of concern/asymmetry compresses out on spot compression imaging. No suspicious masses, calcifications or distortions. Overall Assessment: Benign, BI-RAD 2 Management: Screening Mammogram of both breasts in 1 year. Results were given to the patient verbally at the time of exam. Patient should continue monthly self-breast exams. A clinical breast exam by your physician is recommended on an annual basis. This exam should not preclude additional follow-up of suspicious palpable abnormalities. Note on Falguni scores and lifetime risk: 1. A Falguni score greater than 3% is considered moderate risk. If this is the case, consider specialist referral to assess eligibility for a risk reducing agent. 2. If overall lifetime risk for the development of breast cancer is 20% or higher, the patient may qualify for future screening with alternating mammogram and breast MRI. Electronically signed and approved by: Jenaro Parr DO
== END | disposition home or self-care (01) ==
LOC: RADMAMWWP 09:40
PROVIDERS: ATTEND Family Medicine
DX: R92.8 Other abnormal and inconclusive findings on diagnostic imaging of breast
CPT/HCPCS: 77061; 77065